=== PATIENT | male | born 1945 | race Caucasian/White ===

== ENCOUNTER 2020-04-03 11:05 | Outpatient (CLI) | payer MEDICARE, SELFPAY ==
--- NOTE | ~2020-04-03 | XR_ITS ---
XR hip RT min 3V w AP pelvis 04/03/2020 11:30 Indication: Right hip pain. Limited range of motion. Procedure: 4 views of the right hip including AP pelvis Comparison: No prior studies for comparison. Findings: Pelvic rings are intact. Moderate osteoarthritis of the hips. Sacral foramen are symmetric. There are bilateral femoral vascular calcifications. No acute fracture or traumatic malalignment. Impression: 1: No acute fracture. Reviewed, dictated and finalized at location A. Impression: 1: No acute fracture.
== END 2020-04-03 11:06 | disposition home or self-care (01) ==
PROVIDERS: PCP Family Medicine; Visit Provider Family Medicine
DX: M25.551 Pain in right hip (principal)
CPT/HCPCS: 73502

== ENCOUNTER 2020-04-03 11:58 | Outpatient (RCR) | payer MEDICARE, OTHER, SELFPAY ==
--- NOTE | 2020-04-10 14:30 | PTOPEVAL ---
Thank you for referring Forrest Kong to [facility]. Please review, sign, date and return this plan of care [facility]. I agree with and certify that the following plan of care is medically necessary. Referring Physician Date Admitting Provider: Attending Provider: Donell Gomez MD Referring Provider: *PT Outpatient Evaluation Start: 04/03/20 11:41 Freq: Status: Active Protocol: Document 04/03/20 11:40 JTF (Rec: 04/03/20 12:25 [facility] [id number]) Therapy Assessment Status Assessment Status Assessment Status Evaluation Evaluation Information Problem Diagnosis R hip pain Onset 03/31/20 Subjective Information patient reports he has been Query Text:As Reported By Patient/ having pain in the R hip since Family tuesday of this week. he reports he got into the shower and felt pain in the R hip. he reports the pain has gotten worse since then. he reports he has no ntb down the leg. he reports pain solely in the R hip with movement. he reports he sleeps in bed on his side ( both). he reports no injection to the hip. he reports he prescribed medications, but was instructed to take tylenol as needed. Diagnostic Tests X-Rays For This Problem Yes Prior Level of Function Comments Additional Prior Level of Function prior to tuesday, he reports no Comments issues with the R hip. he reports difficulty with chair transfers, lifting his leg to tie shoes/get dressed, and with standing and walking. Pain Assessment Timing of Pain Assessment Timing of Pain Assessment Assessment Pain Scale Pain Scale Used Numeric (1 - 10) Self Report Pain Assessment Right Hip(s) Reported Pain Level 5 Pain Description Aching,Dull Pain Frequency Acute,Continuous Lowest Pain Intensity 2 Greatest Pain Intensity 5 Pain Aggravating Factors Changing Position,Walking, Weight Bearing/Standing Pain Score Pain Score 5: Self Report Additional Pain Score Comments patient reports pain is located to the groin and buttock of the R hip. Lower Extremity Range of Motion Hip Range of Motion Right Hip Fle
--- NOTE | 2020-05-02 11:06 | PTOPEVAL ---
Thank you for referring Forrest Kong to [facility]. Please review, sign, date and return this plan of care [facility]. I agree with and certify that the following plan of care is medically necessary. Referring Physician Date Admitting Provider: Attending Provider: Donell Gomez MD Referring Provider: *PT Outpatient Evaluation Start: 04/03/20 11:41 Freq: Status: Active Protocol: Document 05/02/20 10:57 J (Rec: 05/02/20 11:05 [facility] [id number]) Therapy Assessment Status Assessment Status Assessment Status Re-evaluation Evaluation Information Problem Diagnosis R hip pain Subjective Information patient reports he feels good Query Text:As Reported By Patient/ this date. he reports he Family initially had a lot of pain in the R hip, but over the past few weeks his pain has really subsided and he reports feeling stronger and more mobile. he reports he would like to continue skilled PT to continue to work towards getting back to walking with a cane only and improving his strength further. Pain Assessment Timing of Pain Assessment Timing of Pain Assessment Assessment Pain Scale Pain Scale Used Numeric (1 - 10) Self Report Pain Assessment Right Hip(s) Reported Pain Level 1 Greatest Pain Intensity 2 Pain Score Pain Score 1: Self Report Lower Extremity Range of Motion Hip Range of Motion Right Hip Flexion Range of Motion - Active 100 Lower Extremity Muscle Strength Testing Hip Strength Right Hip Flexion Strength 4 Good Hip Extension Strength 4+ Good + Hip Abduction Strength 4+ Good + Left Hip Flexion Strength 4+ Good + Hip Extension Strength 4+ Good + Hip Abduction Strength 4+ Good + Knee Strength Right Knee Flexion Strength 5 Normal Knee Extension Strength 5 Normal Left Knee Flexion Strength 5 Normal Knee Extension Strength 5 Normal Muscle Length Testing Muscle Length Testing Left Hamstring Length 25 Query Text:(90 - 90 Position) Right Hamstring Length 15 Query Text:(90 - 90 Position) Palpation Assessment Palpation Palpation tenderness to palpation of the lateral thigh/hip of the R LE and medial thigh of the R LE. Gait Assessment Gait Pattern Assessment Other Gait Observations patient ambulates with hlding
== END 2020-05-21 13:33 | disposition home or self-care (01) ==
LOC: CHSPT 11:58
PROVIDERS: PCP Family Medicine; Visit Provider Family Medicine
DX: M25.551 Pain in right hip (principal)
CPT/HCPCS: 97014; 97110; 97140; 97161; 97530; G0283

== ENCOUNTER 2020-10-06 07:25 | Outpatient (CLI) | payer OTHER, SELFPAY ==
--- NOTE | ~2020-10-06 | CT_ITS ---
EXAMINATION: CTA abdomen pelvis DATE: 10/06/2020 08:27 INDICATION: Abdominal aortic aneurysm without rupture. TECHNIQUE: Computed tomographic angiography (CTA) of the abdomen and pelvis was performed without and with 180 mL Omnipaque-350 intravenous contrast. Automated exposure control and iterative reconstruct ion technique were employed. The dose-length product was 3827.10 mGy-cm. Maximum intensity projection 3D-reconstructions of the aorta and other arteries were constructed by the technologist on a [employer] workstation. COMPARISON: None. FINDINGS: The visualized portions of the lung bases demonstrate calcified pulmonary nodules, consiste nt with old granulomatous disease. No pleural effusion. The heart size is normal. There are coronary artery calcifications. No pericardial effusion. The liver, gallbladder, spleen, and pancreas are norm al. There are low-attenuation masses in the adrenal glands measuring up to 12 mm on the left, consist ent with adenomas. There is cortical thinning of the kidneys. There are cysts in the kidneys measurin g up to 10 mm on the left. There is a 4.7 cm fusiform aneurysm of infrarenal aorta with stent graft f rom the suprarenal aorta to the common iliac arteries. There is contrast in the aneurysm sac adjacent to the stent graft. No feeding artery is identified. There is mild stenosis of celiac axis, superior mesenteric artery, and the renal arteries. 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 The prostate is moderately enlarged. There is asymmetric fat in right inguinal canal that may be a small hernia. There is diverticulosis of the colon without evidence of diverticulitis. There ar e changes of appendectomy. There are no dilated loops of bowel. There are no pathologically enlarged lymph nodes. There is no free intraperitoneal fluid. There is moderate lumbar spondylosis. There is s evere right hip osteoarthritis and moderate left hip osteoarthritis. 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 IMPRESSION: 1. 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 Reviewed, dictated and finalized at location A. ESE TEACHER
[2020-10-06 07:49] LABS: Estimated Glomerular Filt Rate > 60
== END 2020-10-06 07:26 | disposition home or self-care (01) ==
LOC: CHSIMG 07:28
PROVIDERS: PCP Family Medicine
DX: I71.4 Abdominal aortic aneurysm, without rupture (principal)
CPT/HCPCS: 36415; 74174; 82565; Q9965

== ENCOUNTER 2020-11-26 12:07 | Outpatient (CLI) | payer MEDICARE, SELFPAY ==
[2020-11-26 12:21] LABS: Basophils Absolute Auto 0.03 K/mm3 (0.00-0.10); Basophils Percent Auto 0.5 % (0.0-1.0); Hemoglobin 13.8 g/dL (12.4-15.3); Immature Granulocyte Absolute 0.02 K/mm3 (0.00-0.00); Immature Granulocyte Percent A 0.3 % (0.0-0.0); Lymphocytes Absolute Auto 1.39 K/mm3 (1.10-4.50); Lymphocytes Percent Auto 23.3 % (18.0-42.0); Mean Corpuscular HGB Conc 32.9 g/dL (32.0-36.0); Mean Corpuscular Hemoglobin 30.6 pg (27.0-31.0); Mean Corpuscular Volume 93.1 fL (78.0-102.0); Mean Platelet Volume 10.6 fl (8.7-11.0); Monocytes Absolute Auto 0.52 K/mm3 (0.10-0.90); Monocytes Percent Auto 8.7 % (2.0-11.0); Neutrophils Percent Auto 67.2 % (50.0-70.0); Platelet Count Result 129 K/mm3 (150-420); Red Blood Count 4.51 M/mm3 (4.70-6.10); Red Cell Distribution Width 13.1 % (11.6-14.4)
[2020-11-26 13:58] LABS: Alanine Aminotransferase 17 U/L (16-63); Albumin Level 3.7 g/dL (3.4-5.0); Alkaline Phosphatase 65 U/L (46-116); Anion Gap 6 mmol/L (8-16); Aspartate Amino Transferase 23 U/L (15-37); Bilirubin,Total 0.6 mg/dL (0.00-1.00); Blood Urea Nitrogen 20 mg/dL (7-18); Calcium 8.9 mg/dL (8.5-10.1); Carbon Dioxide 32 mmol/L (21-32); Chloride 103 mmol/L (98-108); Cholesterol 231 mg/dL (0-200); Estimated Glomerular Filt Rate > 60; Glucose 104 mg/dL (70-99); HDL Direct 57 mg/dL (40-60); LDL Cholesterol Calculated 149 mg/dL (<130); Osmolality Calculated 294 mOsm/kg (285-295); Potassium 3.6 mmol/L (3.5-5.1); Sodium 141 mmol/L (136-145); Total Protein 6.6 g/dL (6.4-8.2); Triglycerides 125 mg/dL (0-150)
[2020-11-26 13:59] LABS: Thyroid Stimulating Hormone Reflex 1.38 u/IU/mL (0.36-3.74)
== END 2020-11-26 12:08 | disposition home or self-care (01) ==
LOC: CHSLAB 12:11
PROVIDERS: PCP Family Medicine; Visit Provider Family Medicine
DX: D64.9 Anemia, unspecified (principal); I10 Essential (primary) hypertension; E66.9 Obesity, unspecified
CPT/HCPCS: 36415; 80053; 80061; 84443; 85025

== ENCOUNTER 2021-04-04 10:47 | Emergency (ER) | payer MEDICARE, SELFPAY ==
[2021-04-04 11:10] VITALS: BP 157/68; PULSE 78; RESP 14; TEMP 37; O2SAT 95
[2021-04-04 12:06] LABS: Add Urine Microscopic? YES; Appearance Urine Cloudy (Clear); Bilirubin Urine Negative (Negative); Blood Urine 2+ (Negative); Color Urine Yellow (Yellow); Glucose Urine UA Negative (Negative); Ketones Urine Negative (Negative); Leukocyte Esterase Ur 2+ LEU/UL (Negative); Nitrate Urine Negative (Negative); Protein Urine 2+ (Negative); Specific Grav Ur 1.025 (1.010-1.020)
[2021-04-04 12:11] LABS: Bacteria Urine 2+ /hpf; WBC Urine 31-50 /hpf (0-3)
[2021-04-04 13:23] LABS: Basophils Absolute Auto 0.05 K/mm3 (0.00-0.10); Basophils Percent Auto 0.6 % (0.0-1.0); Eosinophils Absolute Auto 0.39 K/mm3 (0.02-0.50); Eosinophils Percent Auto 4.3 % (1.0-6.0); Hematocrit 40.4 % (37.0-46.0); Hemoglobin 13.2 g/dL (12.4-15.3); Immature Granulocyte Absolute 0.07 K/mm3 (0.00-0.00); Immature Granulocyte Percent A 0.8 % (0.0-0.0); Immature Platelet Fraction Pct 3.7 % (1.0-7.0); Lymphocytes Absolute Auto 1.11 K/mm3 (1.10-4.50); Lymphocytes Percent Auto 12.3 % (18.0-42.0); Mean Corpuscular HGB Conc 32.7 g/dL (32.0-36.0); Mean Corpuscular Hemoglobin 30.6 pg (27.0-31.0); Mean Corpuscular Volume 93.5 fL (78.0-102.0); Mean Platelet Volume 10.8 fl (8.7-11.0); Monocytes Absolute Auto 0.77 K/mm3 (0.10-0.90); Monocytes Percent Auto 8.5 % (2.0-11.0); Neutrophils Absolute Auto 6.7 K/mm3 (1.7-7.2); Neutrophils Percent Auto 73.5 % (50.0-70.0); Platelet Count Result 132 K/mm3 (150-420); Red Blood Count 4.32 M/mm3 (4.70-6.10); Red Cell Distribution Width 13.3 % (11.6-14.4); White Blood Count 9.1 K/mm3 (4.8-10.8)
[2021-04-04 13:31] LABS: Alanine Aminotransferase 30 U/L (16-63); Alkaline Phosphatase 69 U/L (46-116); Anion Gap 9 mmol/L (8-16); Aspartate Amino Transferase 19 U/L (15-37); Bilirubin,Total 0.5 mg/dL (0.00-1.00); Blood Urea Nitrogen 22 mg/dL (7-18); Calcium 9.2 mg/dL (8.5-10.1); Carbon Dioxide 32 mmol/L (21-32); Chloride 101 mmol/L (98-108); Estimated CRCL calculation 63 ml/min; Estimated Glomerular Filt Rate > 60; Glucose 107 mg/dL (70-99); Osmolality Calculated 297 mOsm/kg (285-295); Potassium 3.5 mmol/L (3.5-5.1); Sodium 142 mmol/L (136-145); Total Protein 7.3 g/dL (6.4-8.2)
--- NOTE | 2021-04-04 13:31 | ED.GENADULT ---
HPI - General Adult General Chief complaint: Urogenital-Male Stated complaint: frquency and urgency of urination Time Seen by Provider: 04/04/21 11:20 Source: patient Mode of arrival: ambulatory Limitations: no limitations History of Present Illness HPI narrative: Patient complains of moderately severe dysuria with sharp pain above his bladder, and pain with voiding ongoing since last pm. He had a fever of 100.6 last pm. This has been associated with urinary urgency and some frequency, and dysuria. Dysuria has been sharp pain, moderately severe, ongoing since onset, with no relief. He had been doing well up until two days ago. No modifying factors. He has had no known precipitating factors for a urinary tract infection. Onset (ago): hour(s) Location: abdomen (suprapubic) Radiation: non-radiation Severity: moderate Quality: stabbing Pain Consistency: intermittent Relieving factors: none Exacerbating factors: none Associated symptoms: other (dysuria, urinary frequency and urgency) Treatments prior to arrival: NSAID Related Data Home Medications Medication Instructions Recorded Confirmed chlorthalidone 25 mg tablet 25 mg PO DAILY 10/08/19 04/04/21 diltiazem HCl 240 mg 240 mg PO DAILY 10/08/19 04/04/21 capsule,extended release 24 hr doxazosin 4 mg tablet 4 mg PO DAILY 10/08/19 04/04/21 lisinopril 40 mg tablet 40 mg PO DAILY 10/08/19 04/04/21 multivitamin 1 tablet PO DAILY 12/15/20 04/04/21 Allergies Allergy/AdvReac Type Severity Reaction Status Date / Time No Known Allergies Allergy Verified 12/15/20 10:33 Review of Systems Constitutional: Constitutional: Reports chills, Reports fatigue and Reports weakness Eyes: Eyes: Reports no additional eye complaints ENT: Reports system reviewed and no additional complaints, except as documented Cardiovascular: Cardiovascular: Reports no additional cardiovascular complaints Respiratory: Respiratory: Reports no additional respiratory complaints Gastrointestinal: Gastrointestinal: Reports no additional gastrointestinal complaints Genitourinary: Genitourinary: Reports no additional male genitourinary complaints Musculoskeletal: Musculoskeletal: Reports no additional musculoskeletal complaints Integumentary/Breasts: Skin/Breast: Reports system reviewed and no additional complaints, except as docu Neurologic: Reports system reviewed and no additional complaints, except as documented Psychiatric: Psychiatric: Reports no additional psychiatric complaints Endocrine: Endocrine: Reports no additional endocrine complaints Hematologic/Lymphatic: Hematologic/Lymphatic: Reports no additional hematologic/lymphatic complaints Allergic/Immunologic: Allergic/Immunologic: Reports no additional allergic/immunologic complaints [facility] Past Medical History Medical History (Updated 04/04/21 @ 14:45 by Willem Boyle MD) AAA (abdominal aortic aneurysm) Anemia Arthritis BPH (benign prostatic hyperplasia) Gait disturbance Hip osteoarthritis History of GI bleed HTN (hypertension) Hx of benign neoplasm of bladder Obesity, Class II, BMI 35-39.9 Pain in unspecified hip Surgical History Surgical History History of appendectomy 11-25-2009 History of bilateral cataract extraction History of bowel resection History of removal of cyst approx. 2013 History of surgery history of tumor removed from bladder; took quarterly treatments (cysto and BCG) Dr. Rivera; all clear as of 07/01/15, last BCG treatment 6-- S/P AAA repair using straight graft 2011 Family History Family History Father Family history of malignant neoplasm Mother Family history of malignant neoplasm Family history of type 2 diabetes mellitus Social History Social History Smoking packs per day: 2 Smoking cigarettes per day: 40.0 Years smoked: 50
== END 2021-04-04 14:30 | disposition home or self-care (01) ==
PROVIDERS: Emergency Provider Emergency Medicine; PCP Family Medicine
DX: N41.0 Acute prostatitis (principal); Z87.891 Personal history of nicotine dependence; R82.90 Unspecified abnormal findings in urine
CPT/HCPCS: 36415; 80053; 81001; 83605; 85025; 85055; 87077; 87086; 87088; 87186; 99282; 99283

== ENCOUNTER 2021-05-19 10:24 | Outpatient (CLI) | payer MEDICARE, SELFPAY ==
--- NOTE | ~2021-05-19 | XR_ITS ---
EXAMINATION: XR lg joint inject/aspiration DATE: 05/19/2021 11:13 INDICATION: Right hip arthritis. TECHNIQUE: A time-out was performed to verify the patient's name, date of , and procedure to b e performed. The procedure including the risks, benefits, and alternatives was discussed with the pat ient. Risks discussed included bleeding and infection. The patient understood the risks and agreed to proceed. The skin overlying the right hip joint was prepped and draped in usual sterile fashion. A nesthetic was administered with 1% lidocaine subcutaneously. A 22 G needle was advanced under fluoro scopic guidance into the joint. Injection of 1 mL of Omnipaque 240 confirmed intra-articular positio n of the needle. Subsequently, injectate consisting of 2 mL 0.5% bupivacaine and 1 mL 80 mg/mL Depo- Medrol was instilled. The needle was removed and the entry site was cleaned and dressed. There were no immediate complications. Fluoroscopy exposure time was 0.0 minutes. The total number of images wa s 2. FINDINGS: Real-time fluoroscopy demonstrates the needle in the right hip joint. Patient's pain prior to procedure:11/16. Patient's pain following the procedure: 11/16. IMPRESSION: 1. Fluoroscopy-guided right hip joint injection of local anesthetic and steroid. Reviewed, dictated and finalized at location A. IMPRESSION: 1. Fluoroscopy-guided right hip joint injection of local anesthetic and steroid .
== END 2021-05-19 10:25 | disposition home or self-care (01) ==
PROVIDERS: PCP Family Medicine; Visit Provider Orthopaedic Surgery
DX: M16.11 Unilateral primary osteoarthritis, right hip (principal)
CPT/HCPCS: 20610; J1040; Q9966

== ENCOUNTER 2021-12-30 07:41 | Outpatient (CLI) | payer MEDICARE, SELFPAY ==
--- NOTE | ~2021-12-30 | CT_ITS ---
EXAMINATION: CT chest abdomen pelvis w con DATE: 12/30/2021 09:04 INDICATION: Abdominal aortic aneurysm TECHNIQUE: Transaxial computed tomographic images of the chest, abdomen, and pelvis were obtained aft er the administration of 100 cc of Omnipaque 350 intravenous contrast. The dose-length product (DLP) was 1617.91 mGy-cm. Automated exposure control and iterative reconstruction technique were employed. COMPARISON: 10/06/2020 FINDINGS: CHEST CT: Calcified pulmonary nodules and calcified bilateral hilar and mediastinal lymph nodes are consistent with old granulomatous disease. There are tree-in-bud and nodular opacities of the lungs, likely infe ctious or inflammatory. There is no pleural effusion or pneumothorax. The heart size is normal. There is calcified coronary artery atherosclerosis. There is a mildly enlarged 1.2 cm lower paraesophageal lymph node. There are enlarged para-aortic lymph nodes just above the diaphragmatic hiatus which ap sure up to 1.5 cm. ABDOMEN/PELVIS CT: There is a new ill-defined 6.7 x 5.7 cm mass of the right hepatic lobe. The spleen, pancreas, gallbla dder, and adrenal glands are normal. There are small cysts of the kidneys. An area of cortical scarri ng is noted medially in the right kidney lower pole. There are changes of endoluminal aortic aneurysm repair. There is a persistent 4.2 cm fusiform aneurysm of the infrarenal abdominal aorta, decreased in size from 4.7 cm. There is aortocaval lymphadenopathy just below the level of the right renal vess els. There is severe lumbar spondylosis. Again noted is osteonecrosis of the right femoral head. IMPRESSION: 1. Stented fusiform infrarenal abdominal aortic aneurysm with interval decrease in size. 2. New liver mass and thoracic and abdominal lymphadenopathy, consistent with metastatic disease of u nknown primary. The liver mass with likely be amenable to percutaneous biopsy, which is recommended. These findings and recommendations were discussed with Dr. Jeffrey Lugo DO at 1501 hours on 12/09. Reviewed, dictated and finalized at location A. LAR ALARM MECHANIC IMPRESSION: 1. Stented fusiform infrarenal abdominal aortic aneurysm with interval decrease in size. 2. New liver mass and thoracic and abdominal lymphadenopathy, consistent with m etastatic disease of unknown primary. The liver mass with likely be amenable to percutaneous biopsy, which is recommended. These findings and recommendations were discussed with Saniya Goff at 1501 hours on 12/30/2021.
[2021-12-30 07:52] LABS: Hematocrit 35.1 % (37.0-46.0); Hemoglobin 11.4 g/dL (12.4-15.3); Mean Corpuscular HGB Conc 32.5 g/dL (32.0-36.0); Mean Corpuscular Hemoglobin 30.7 pg (27.0-31.0); Mean Corpuscular Volume 94.6 fL (78.0-102.0); Mean Platelet Volume 9.7 fl (8.7-11.0); Platelet Count Result 157 K/mm3 (150-420); Red Blood Count 3.71 M/mm3 (4.70-6.10); Red Cell Distribution Width 13.9 % (11.6-14.4); White Blood Count 6.9 K/mm3 (4.8-10.8)
[2021-12-30 08:02] LABS: Hemoglobin A1C 5.9 % (<5.7)
[2021-12-30 08:21] LABS: Alanine Aminotransferase 21 U/L (16-63); Alkaline Phosphatase 85 U/L (46-116); Anion Gap 10 mmol/L (8-16); Aspartate Amino Transferase 17 U/L (15-37); Bilirubin,Total 0.4 mg/dL (0.00-1.00); Blood Urea Nitrogen 19 mg/dL (7-18); Calcium 8.9 mg/dL (8.5-10.1); Carbon Dioxide 32 mmol/L (21-32); Chloride 104 mmol/L (98-108); Estimated Glomerular Filt Rate > 60; Glucose 111 mg/dL (70-99); Osmolality Calculated 305 mOsm/kg (285-295); Potassium 3.7 mmol/L (3.5-5.1); Sodium 146 mmol/L (136-145); Total Protein 6.3 g/dL (6.4-8.2)
== END 2021-12-30 07:42 | disposition home or self-care (01) ==
LOC: CHSIMG 07:43
PROVIDERS: PCP Family Medicine; Visit Provider Family Medicine
DX: I71.4 Abdominal aortic aneurysm, without rupture (principal); R73.09 Other abnormal glucose
CPT/HCPCS: 36415; 71260; 74177; 80053; 83036; 85027; Q9967

== ENCOUNTER 2022-01-13 08:07 | Outpatient (CLI) | payer MEDICARE, SELFPAY ==
[2022-01-01 13:45] VITALS: BMI 38.5
--- NOTE | 2022-01-01 13:50 | PC.NURSE ---
Report to the Outpatient Waiting Room, entrance under the green pavilion located off [facility], at time _0830_ on date _01/13/22_. OR Time: _1030_. - You and your visitor will be asked a series of questions to screen for COVID 19 for your protection. - A mask is required within the hospital. One visitor will be allowed to accompany the patient into the hospital. Patients visitor will be instructed to remain with patient at all times or leave the building. We will allow the visitor to come back to the postoperative area when patient is ready. Preoperative COVID Testing Requirements: NONE - No food/drink from 0430 until time of procedure Take the following medications with a SIP of water the morning of surgery: __MORNING MEDICATIONS__ Medications to discontinue per physician _NONE_ Please no deodorant, or body powder the day of surgery. No jewelry (including any body piercings) or valuables the day of surgery, leave them at home. Please take a shower or bath the night before, or the morning of, surgery with an antibacterial soap. Wear comfortable, loose fitting clothing. Children are encouraged to wear pajamas. - Jewelry must be removed prior to entering the operating room. Rings and piercings that are not removed may be cut off. - The hospital will not accept responsibility for valuables. - Please leave all valuables, including medications, at home the day of surgery. If you are going home after surgery, a licensed stacker driver must drive you home. - NO public transportation without another adult. - We recommend that an adult stay with you for 24 hours following discharge. - We also recommend that you do not drive, make important decision, drink alcoholic beverages, or take any drugs that were not prescribed by your health care provider for at least 24 hours after your discharge time. Follow any additional instructions given to you from your surgeon. Telephone instructions given to ____PT and asked if any additional questions and then verbalized understanding. Patient advised to call surgeon office or pre surgery nurse liaison [phone] if any additional questions.
[2022-01-13] VITALS (12 sets, daily range): BP systolic 141–174; BP diastolic 67–81; PULSE 60–74; RESP 14–16; TEMP 36.8; O2SAT 95–98
--- NOTE | ~2022-01-13 | US_ITS ---
EXAMINATION: US biopsy liver DATE: 01/13/2022 10:41 INDICATION: Liver mass. TECHNIQUE: The procedure including the risks, benefits, and alternatives was discussed with the patie nt. Risks discussed included bleeding and infection. The patient understood the risks and agreed to p roceed. The skin overlying the liver was prepped and draped in usual sterile fashion. Anesthetic was administered with 1% lidocaine subcutaneously. An 18 gauge core biopsy needle was then used to obta in 3 core biopsy specimens under continuous sonographic guidance. The entry site was cleaned and dres sed. There were no immediate complications. FINDINGS: Ultrasound images demonstrate the needle in a 7.8 cm hypoechoic mass in right hepatic lobe. IMPRESSION: 1. Ultrasound-guided core needle biopsy of a liver mass. Reviewed, dictated and finalized at location A. LIFE REMOVAL SPECIALIST
[2022-01-13 08:59] LABS: Mean Platelet Volume 10.3 fl (7.4-10.4); Platelet Count Result 156 k/mm3 (150-375)
[2022-01-13 09:10] LABS: Prothrombin Time 13.1 Seconds (11.1-14.7)
--- NOTE | 2022-01-13 13:38 | SUR.PHASEII ---
this nurse informed md Payton that this pt is doing well. VSS. denies any pain and surgical site is soft and no gross signs of any bleeding.
--- NOTE | 2022-01-13 13:41 | SUR.PHASEII ---
dr weber said he does not need to see the pt before he can leave.
== END 2022-01-13 14:35 | disposition home or self-care (01) ==
PROVIDERS: PCP Family Medicine; Visit Provider Radiology Diagnostic Radiology
PROC: BF45ZZZ Ultrasonography of Liver (ICD-10-PCS; CPT 47000; principal; 2022-01-13 10:30)
DX: C22.7 Other specified carcinomas of liver (principal); R16.0 Hepatomegaly, not elsewhere classified
CPT/HCPCS: 36415; 47000; 76942; 85049; 85610; 88307; 88313; 88342

== ENCOUNTER 2022-01-29 14:03 | Outpatient (CLI) | payer MEDICARE, SELFPAY ==
[2022-02-01 14:05] LABS: CA 19-9 12 U/mL (<34)
== END 2022-01-29 14:04 | disposition home or self-care (01) ==
LOC: ANHLAB 14:04
PROVIDERS: PCP Family Medicine; Visit Provider Internal Medicine Hematology & Oncology
DX: C22.1 Intrahepatic bile duct carcinoma (principal); C18.9 Malignant neoplasm of colon, unspecified
CPT/HCPCS: 36415; 82378; 86301

== ENCOUNTER 2022-02-12 10:37 | Outpatient (CLI) | payer MEDICARE, SELFPAY ==
[2022-02-12 11:20] LABS: Estimated Glomerular Filt Rate 57
== END 2022-02-12 10:38 | disposition home or self-care (01) ==
LOC: CHSLAB 10:41
PROVIDERS: PCP Family Medicine
DX: C22.1 Intrahepatic bile duct carcinoma (principal)
CPT/HCPCS: 99199

== ENCOUNTER 2022-02-16 07:24 | Outpatient (CLI) | payer MEDICARE, SELFPAY ==
--- NOTE | ~2022-02-16 | MR_ITS ---
EXAMINATION: MR abdomen wo/w con INDICATION: Cholangiocarcinoma TECHNIQUE: Coronal SSFSE ARC, WATER:coronal LAVA-FLEX, Coronal 2D FIESTA FatSat, Axial SSFSE BH ARC, Axial 3D DualEcho BH, Axial SSFSE-IR, Axial DWI b=500, Axial 2D FIESTA FatSat, pre and dynamic postco ntrast Axial LAVA ARC, postcontrast Coronal In and Opposed phase LAVA FLEX COMPARISON: CT, 12/30/2021 CONTRAST: Multihance, 20 cc FINDINGS: There is a 10.1 x 7.3 x 11.5 cm mass of the right hepatic lobe which demonstrates heterogen eous T1 and T2 signal intensity. The mass also demonstrates heterogeneous internal enhancement after contrast administration as well as restricted diffusion. No additional liver masses are identified. T he spleen, gallbladder, and adrenal glands are normal. Again seen is retroperitoneal lymphadenopathy near the right renal vessels. There is a 7 mm cystic lesion in the tail of the pancreas without defin ite communication with the main pancreatic duct. Cysts of the kidneys measure up to 1.3 cm on the lef t. There is a 4.2 cm infrarenal abdominal aortic aneurysm status post endoluminal aortic aneurysm rep air. IMPRESSION: 1. 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 2. Retroperitoneal lymphadenopathy concerning for metastatic disease. 3. 7 mm cystic lesion in the tail of the pancreas, probably benign. Reviewed, dictated and finalized at location A.
== END 2022-02-16 07:25 | disposition home or self-care (01) ==
PROVIDERS: PCP Family Medicine
DX: C22.1 Intrahepatic bile duct carcinoma (principal); K76.9 Liver disease, unspecified
CPT/HCPCS: 74183; A9577

== ENCOUNTER 2022-03-04 09:57 | Outpatient (CLI) | payer MEDICARE, SELFPAY ==
[2022-03-04 10:08] LABS: Basophils Absolute Auto 0.07 K/mm3 (0.00-0.10); Basophils Percent Auto 0.9 % (0.0-1.0); Hematocrit 30.9 % (37.0-46.0); Hemoglobin 9.4 g/dL (12.4-15.3); Immature Granulocyte Absolute 0.06 K/mm3 (0.00-0.00); Immature Granulocyte Percent A 0.7 % (0.0-0.0); Lymphocytes Absolute Auto 0.89 K/mm3 (1.10-4.50); Lymphocytes Percent Auto 10.9 % (18.0-42.0); Mean Corpuscular HGB Conc 30.4 g/dL (32.0-36.0); Mean Corpuscular Hemoglobin 28.5 pg (27.0-31.0); Mean Corpuscular Volume 93.6 fL (78.0-102.0); Mean Platelet Volume 8.9 fl (8.7-11.0); Monocytes Absolute Auto 0.72 K/mm3 (0.10-0.90); Monocytes Percent Auto 8.8 % (2.0-11.0); Neutrophils Absolute Auto 6.5 K/mm3 (1.7-7.2); Neutrophils Percent Auto 78.7 % (50.0-70.0); Platelet Count Result 172 K/mm3 (150-420); Red Cell Distribution Width 14.1 % (11.6-14.4); White Blood Count 8.2 K/mm3 (4.8-10.8)
[2022-03-04 10:23] LABS: Partial Thromboplastin Time 26.8 SEC (23.90-30.70)
[2022-03-04 10:29] LABS: Anion Gap 8 mmol/L (8-16); Blood Urea Nitrogen 21 mg/dL (7-18); Calcium 8.5 mg/dL (8.5-10.1); Carbon Dioxide 31 mmol/L (21-32); Chloride 103 mmol/L (98-108); Estimated Glomerular Filt Rate > 60; Glucose 113 mg/dL (70-99); Osmolality Calculated 298 mOsm/kg (285-295); Potassium 3.5 mmol/L (3.5-5.1); Sodium 142 mmol/L (136-145)
== END 2022-03-04 09:58 | disposition home or self-care (01) ==
LOC: CHSLAB 10:00
PROVIDERS: Surgery; PCP Family Medicine; Visit Provider Anesthesiology
DX: Z79.899 Other long term (current) drug therapy (principal); C22.1 Intrahepatic bile duct carcinoma
CPT/HCPCS: 36415; 80048; 85025; 85730

== ENCOUNTER 2022-03-09 00:22 | Day surgery (SDC) | payer MEDICARE, SELFPAY ==
--- NOTE | 2022-03-03 15:29 | PC.NURSE ---
Report to the Outpatient Waiting Room, entrance under the green pavilion located off [facility], at time _1230_ on date _03/09/22_. OR Time: _1430_. - You and your visitor will be asked a series of questions to screen for COVID 19 for your protection. - Only one visitor is allowed at this time. - The patient visitor is requested to leave or wait in car when not with patient. - A mask is required within the hospital. Patients may have clear liquids (water, carbonated beverages, clear teas, apple juice) until 3 hours prior to surgery (1130 AM) with a maximum of 20 ounces. - No food from midnight until time of surgery - Infants may have breast milk until 4 hours before surgery, formula 6 hours prior to surgery. - Children will be allowed to drink immediately following surgery. If applicable, please bring a bottle or sippy cup to assist with drinking. Juice, water, soda, and popsicles are readily available. For infants on formula, please bring formula the day of surgery. Pacifiers are allowed. Take the following medications with a SIP of water the morning of surgery: _DILTIAZEM__ Medications to discontinue per ___ANESTHESIA - MULTIVITAMIN 3 DAYS PRIOR TO SURGERY, Date to take last dose 03/05/22_ Please no make-up, nail mozambican, hairspray, perfume, deodorant, or body powder the day of surgery. No jewelry (including any body piercings) or valuables the day of surgery, leave them at home. Please take a shower or bath the night before, or the morning of, surgery with an antibacterial soap. Wear comfortable, loose fitting clothing. Children are encouraged to wear pajamas. - Jewelry must be removed prior to entering the operating room. Rings and piercings that are not removed may be cut off. - The hospital will not accept responsibility for valuables. - Please leave all valuables, including medications, at home the day of surgery. If you are going home after surgery, a licensed electric screw driver operator must drive you home. - NO public transportation without another adult. - We recommend that an adult stay with you for 24 hours following discharge. - We also recommend that you do not drive, make important decision, drink alcoholic beverages, or take any drugs that were not prescribed by your health care provider for at least 24 hours after your discharge time. For Pediatric surgeries, we recommend two adults accompany the child home (only one inside the building at this time). Follow any additional instructions given to you from your surgeon. If you or anyone in your household have experienced Covid symptoms in the past week, please notify your surgeon or the nurse liaison at the phone number below for possible testing. Telephone instructions given to __PT and asked if any additional questions and then verbalized understanding. Patient advised to call surgeon office or pre surgery nurse liaison [phone] if any additional questions.
[2022-03-03 15:31] VITALS: BMI 38.4
--- NOTE | 2022-03-08 20:37 | PM.HPGS ---
History of Present Illness History of Present Illness Consent: Risks, benefits, and alternatives of placement of a Ann Marie-cath have been discussed and questions answered. Patient agrees to proceed with procedure. Chief complaint: cholangiocarcinoma Narrative: Forrest Kong is a 76 year old male White male with recently diagnosed Cholangiocarcinoma. This was 1st detected on a CT that he had done to evaluate a possible AAA graft that had been done in the past. An US guided liver biopsy provided the tissue diagnosis. Review of Systems Constitutional: Constitutional: Reports no additional constitutional complaints and Denies malaise Eyes: Eyes: Denies change in vision and Denies loss of vision ENT: Reports Normal hearing present, Denies change in voice, Denies dizziness, Denies hoarseness and Denies sore throat Cardiovascular: Cardiovascular: Denies chest pain, Denies leg edema and Denies dyspnea Comments: HX of previous endovascular AAA repair. Hx of HTN Respiratory: Respiratory: Denies cough, Denies dyspnea and Denies wheezing Gastrointestinal: Gastrointestinal: Denies hematochezia, Denies change in bowel habits and Denies heartburn Genitourinary: Genitourinary: Denies urinary frequency and Denies urinary incontinence Comments: Hx of bladder CA S/P TURBT and then Rx with BCG. Also a Hx of BPH. Neurologic: Reports Normal hearing present, Denies confusion, Denies dizziness, Denies loss of vision, Denies memory loss and Denies seizure-like activity Psychiatric: Psychiatric: Denies confusion, Denies depression and Denies memory loss Endocrine: Endocrine: Denies cold intolerance and Reports fatigue Hematologic/Lymphatic: Hematologic/Lymphatic: Denies easy bleeding and Denies easy bruising Allergic/Immunologic: Allergic/Immunologic: Denies wheezing PMFSH Past Medical History Medical History AAA (abdominal aortic aneurysm) Anemia Arthritis BPH (benign prostatic hyperplasia) Cholangiocarcinoma (~02/2022) Gait disturbance Hip osteoarthritis History of GI bleed HTN (hypertension) Hx of benign neoplasm of bladder Obesity, Class II, BMI 35-39.9 Pain in unspecified hip Surgical History Surgical History History of appendectomy 11-25-2009 History of bilateral cataract extraction History of bowel resection History of removal of cyst approx. 2013 History of surgery history of tumor removed from bladder; took quarterly treatments (cysto and BCG) Dr. Rivera; all clear as of 07/01/15, last BCG treatment 6-02-17 S/P AAA repair using straight graft 2011 Family History Family History Father Family history of malignant neoplasm Mother Family history of malignant neoplasm Family history of type 2 diabetes mellitus Social History Social History Smoking packs per day: 2 Smoking cigarettes per day: 40.0 Years smoked: 50 Smoking pack-years: 100.00 Smoking status: Former smoker Tobacco type: cigarettes Second hand tobacco smoke exposure: No Smoking end date: 11/07/09 Alcohol intake: current Alcohol use details: 2-4 DRINKS/MONTH Substance use: never Substance use type: does not use Gender identity (if verbalized by the patient): Male Spiritual care concerns: No Meds Home Medications and Allergies Home Medications Medication Instructions Recorded Confirmed Type chlorthalidone 25 mg tablet 12.5 mg PO QAM 10/08/19 03/10/22 History diltiazem HCl 240 mg 240 mg PO QAM 10/08/19 03/10/22 History capsule,extended release 24 hr lisinopril 40 mg tablet 40 mg PO QAM 10/08/19 03/10/22 History multivitamin 1 tablet PO QAM 12/15/20 03/10/22 History doxazosin 8 mg tablet 4 mg PO HS 12/29/21 03/10/22 History hydrocodone 5 mg-acetaminophen 325 1 tablet PO Q6H PRN
--- NOTE | ~2022-03-09 | XR_ITS ---
EXAMINATION: XR chest port-a-cath/central INDICATION: Port-A-Cath insertion TECHNIQUE: Portable AP chest at 1623 hours COMPARISON: None available FINDINGS: A right internal jugular Port-A-Cath ends with its tip in the midsuperior vena cava. No pne umothorax is identified. The lung bases are excluded from the examination. The heart size is normal. There is advanced osteoarthritis of the left glenohumeral joint. IMPRESSION: 1. Right internal jugular Port-A-Cath ending in the midsuperior vena cava. No pneumothorax identified . Reviewed, dictated and finalized at location A. IMPRESSION: 1. Right internal jugular Port-A-Cath ending in the midsuperior vena cava. No p neumothorax identified.
--- NOTE | ~2022-03-09 | XR_ITS ---
EXAMINATION: XR fl guide central line place INDICATION: Port-A-Cath insertion TECHNIQUE: Fluoroscopy exposure time was 21.4 seconds. Four intraoperative fluoroscopic images are bansal bmitted for review. COMPARISON: None available FINDINGS: Fluoroscopic images demonstrate insertion of a right internal jugular Port-A-Cath ending wi th its tip in the midsuperior vena cava. Please refer to procedure note for full details. IMPRESSION: 1. Right internal jugular Port-A-Cath insertion. Reviewed, dictated and finalized at location A.
[2022-03-09 12:57] VITALS: BP 136/67; PULSE 74; RESP 18; TEMP 37.1; O2SAT 96
[2022-03-09] MEDS: LACTATED RINGERS 1,000 ML 30 ML IV CONT (13:26)
[2022-03-09] MEDS: KETOROLAC 15 MG/ML VIAL (*BKC) IV PUSH (13:27)
--- NOTE | 2022-03-09 13:59 | WPDANESEPPF ---
Anes - Initial Pre Proc Eval Procedure: Operation Date: 03/09/22 14:30 Proposed Procedures p Insertion Ann Marie Cath - Jesus Stone MD Date/Time: 03/09/22 13:59 Surgeon: Jesus Stone MD Pre Op Diagnosis: cholangiocarcinoma Patient Data Age: 76 Gender: M Height: 1.75 m Weight: 117.1 kg Last Vital Signs Temp 37.1 C 03/09/22 12:57 Pulse 74 03/09/22 12:57 Resp 18 03/09/22 12:57 BP 136/67 03/09/22 12:57 Pulse Ox 96 03/09/22 12:57 Allergies Allergy/AdvReac Type Severity Reaction Status Date / Time No Known Allergies Allergy Verified 03/09/22 12:55 Home Medications Medication Instructions Recorded Confirmed Type chlorthalidone 25 mg tablet 12.5 mg PO QAM 10/08/19 03/09/22 History diltiazem HCl 240 mg 240 mg PO QAM 10/08/19 03/09/22 History capsule,extended release 24 hr lisinopril 40 mg tablet 40 mg PO QAM 10/08/19 03/09/22 History multivitamin 1 tablet PO QAM 12/15/20 03/09/22 History doxazosin 8 mg tablet 4 mg PO HS tablet 12/29/21 03/09/22 History Patient hx anesthesia problems: none Family hx anesthesia problems: none Results Review: All pre-operative results and documents have been reviewed as part of the pre-operative evaluation. [facility] Past Medical History Medical History AAA (abdominal aortic aneurysm) Anemia Arthritis BPH (benign prostatic hyperplasia) Cholangiocarcinoma (~02/2022) Gait disturbance Hip osteoarthritis History of GI bleed HTN (hypertension) Hx of benign neoplasm of bladder Obesity, Class II, BMI 35-39.9 Pain in unspecified hip Surgical History Surgical History History of appendectomy 11-25-2009 History of bilateral cataract extraction History of bowel resection History of removal of cyst approx. 2013 History of surgery history of tumor removed from bladder; took quarterly treatments (cysto and BCG) Dr. Rivera; all clear as of 07/01/15, last BCG treatment 04-10-13 S/P AAA repair using straight graft 2011 Family History Family History Father Family history of malignant neoplasm Mother Family history of malignant neoplasm Family history of type 2 diabetes mellitus Social History Social History Smoking packs per day: 2 Smoking cigarettes per day: 40.0 Years smoked: 50 Smoking pack-years: 100.00 Smoking status: Former smoker Tobacco type: cigarettes Second hand tobacco smoke exposure: No Smoking end date: 11/07/09 Alcohol intake: current Alcohol use details: 2-4 DRINKS/MONTH Substance use: never Substance use type: does not use Living arrangements: alone Gender identity (if verbalized by the patient): Male Spiritual care concerns: No Anes - Eval Final PreProcedure Day of Procedure 03/09/22 13:59 Patient weight: obese Heart: regular rate and rhythm Lungs: decreased breath sounds Airway: Mallampati scale class II Neurological: alert and oriented Last oral intake: >/= 8 hours ASA classification: IV Emergent: no Anesthetic plan: proceed Anesthesia type and monitoring: general GIVS and standard monitoring Results Review: All pre-operative results and documents have been reviewed as part of the pre-operative evaluation. Informed Consent: The patient's anesthetic plan and its attendant risks and benefits were discussed with the patient/family/POA. Questions were solicited and answers provided to the satisfaction of the patient/family/POA.
--- NOTE | 2022-03-09 14:54 | WPDHPUPDATE1 ---
History and Physical Update Update Date/Time: 03/09/22 14:54 History and Physical has been reviewed, including an updated exam of the patient. There are NO changes in the patient's condition. Risks, benefits, and alternatives have been discussed and questions answered. Patient agrees to proceed with procedure.
[2022-03-09] MEDS: ceFAZolin 2 GM/D5W 50 ML 2 GM/50 ML BAG IVPB (15:03)
[2022-03-09] MEDS: HEPARIN SODIUM 5,000 UNITS/ML VIAL 5000 UNITS IRRIGATION (15:48)
[2022-03-09 16:15] VITALS: BP 128/54; PULSE 66; RESP 16; O2SAT 99
--- NOTE | 2022-03-09 16:19 | W.PM.PROC2 ---
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 Placement of Ann Marie-cath. 2. Use of US for vascular access site selection and visualization of needle access to vein. Surgeon Jesus Stone MD Cardiac Nurse Practitioner PAULA [place].[employer] certified surgical tech/first assistant Anesthesia Local (with 0.5% Marcaine with epinepherine) and Other (GIVS) Indications Patient was recently discovered to have liver metastasis secondary to suspected cholangiocarcinoma. Please see the history and physical for further details. Patient is planning to proceed to adjuvant chemotherapy and possible later liver resection. Therefore, Dr. Thorne requested placement of central venous access for chemotherapy. Findings Normal vascular anatomy of the right neck including patent jugular vein and posterior medial lying carotid artery. Description of Procedure Patient was seen and marked in the pre-op area prior to coming to the OR. Patient was brought to the operating room. Patient was placed supine on the operating table and general IV sedation was induced. The nurse facility maintenance supervisor provided And continuous monitoring, oxygen, and IV sedation or general anesthesia with IV sedation as was appropriate for the patient's condition. See anesthesia notes). Patient's head was carefully turned to the left side while in the supine position and the patient's entire neck and anterior chest on both sides was prepped and draped in the usual sterile fashion. Following this the appropriate time-out was completed confirming procedure and patient. We confirmed that all the needed equipment was present in the room including the vascular ultrasound probe in machine. Following this the ultrasound probe was draped into the field and using the probe we carefully identified the carotid artery and jugular vein on the right neck. I then saved an image of the vascular anatomy of the neck, which documented the selected vessels patency and transferred it from the ultrasound machine to the [place] chart. I marked the skin directly over the right internal jugular vein. I then used an 11 blade knife to make a small hiral in the skin. Following this, using the continuous ultrasound guidance, a Cook needle was placed through the skin incision and on into this vein. I then was able to draw back good dark blood. Once this was completed a guidewire using a J-tip was advanced through the needle and then the needle and the guidewire cover were withdrawn. C-arm fluoroscopy was used to confirm that the guidewire was nicely in the central venous system. Once this was confirmed with the C - arm, I preceded on by making the pocket for the port on the patient's anterior right chest approximately 3 centimeters below the clavicle overlying the chest wall. Local anesthetic was infiltrated into the skin where there was a transverse incision marked out. Incision was made and we made a pocket inferior to the incision with just a little dissection superior. The Smart port was tried in the pocket and seemed to fit well. Following this the catheter which had been placed on a tunneling device was tunneled from the port site on the anterior right chest up to the right neck where the small incision had been made slightly larger with an #11 blade knife. Then the catheter was pulled through so that we would have 15 centimeters to put into the central venous system once the dilation took place. Following this we placed the dilator and sheath over the guidewire in the jugular vein and carefully dilated the tract into the central venous system. The guidewire and dilator were then removed, carefully covering the end of the sheath to prevent air embolus. The end of the catheter which had been removed from the tunneling device and the tip checked was then inserted into the sheath and into the neck. I then carefully pulled the 2 arms of the tear-away sheath away as the assistan
[2022-03-09 16:45] VITALS: BP 114/56; PULSE 79
[2022-03-09 17:05] VITALS: BP 123/64; PULSE 74
== END 2022-03-09 17:12 | disposition home or self-care (01) ==
PROVIDERS: PCP Family Medicine; Visit Provider Surgery
PROC: (CPT 36561; principal; 2022-03-09 14:30)
DX: C80.1 Malignant (primary) neoplasm, unspecified (principal); C78.7 Secondary malignant neoplasm of liver and intrahepatic bile duct; D64.9 Anemia, unspecified; N40.0 Benign prostatic hyperplasia without lower urinary tract symptoms; R26.9 Unspecified abnormalities of gait and mobility; I10 Essential (primary) hypertension; M16.10 Unilateral primary osteoarthritis, unspecified hip; Z87.891 Personal history of nicotine dependence; E66.9 Obesity, unspecified; Z68.38 Body mass index [BMI] 38.0-38.9, adult
CPT/HCPCS: 36561; 76937; 77001; C1788; J0690; J1644; J1885; J2704; J3010; J7030; J7120

== ENCOUNTER 2022-03-17 10:00 | Outpatient (RCR) | payer MEDICARE, SELFPAY ==
[2022-03-17] VITALS (9 sets, daily range): BP systolic 139–167; BP diastolic 51–75; PULSE 67–80; RESP 20–22; TEMP 36.2–36.8; O2SAT 94–97
[2022-03-17] MEDS: SODIUM CHLORIDE 0.9% IV 250 ML 30 ML (10:25)
[2022-03-17] MEDS: diphenhydrAMINE HCl CAP 25 MG CAPSULE PO (10:34)
[2022-03-17] MEDS: ACETAMINOPHEN 325 MG TABLET 650 MG PO (10:34)
--- NOTE | 2022-03-17 12:28 | PC.NURSE ---
On admission patient reports shortness of breath ongoing for about 1 month. Patient denies any pain. Patient reports he has had 3 blood transfusions in the past, approximately 7 years ago. He tolerated the transfusions well with no reactions. He denies history of CHF or volume overload.
--- NOTE | 2022-03-17 12:32 | PC.NURSE ---
Rate of blood transfusion increased to 250 ml/hr
[2022-03-17] MEDS: FUROSEMIDE INJ 40 MG/4 ML VIAL 20 MG IV PUSH (13:07)
[2022-03-17] MEDS: HEPARIN SODIUM LOCK FLUSH 500 UNITS/5 ML VIAL (15:45)
== END 2022-03-18 08:00 | disposition home or self-care (01) ==
LOC: ANHCPCTRAN 10:00
PROVIDERS: PCP Family Medicine; Visit Provider Internal Medicine Hematology & Oncology
DX: D64.9 Anemia, unspecified (principal)
CPT/HCPCS: 36415; 36430; 86850; 86900; 86901; 86920; 96374; A9270; J1642; J1940; J7050; P9016

== ENCOUNTER 2022-04-01 09:29 | Outpatient (CLI) | payer MEDICARE, SELFPAY ==
--- NOTE | ~2022-04-01 | XR_ITS ---
EXAMINATION: XR chest 2V DATE: 04/01/2022 09:49 INDICATION: Pulmonary edema TECHNIQUE: frontal and lateral views of the chest were obtained. COMPARISON: Chest radiograph dated 04/05/2022 FINDINGS: Right internal jugular central venous port catheter with distal tip at the midsuperior vena cava. Sma ll bilateral pleural effusions with associated bibasilar atelectasis. Small left paracardial fat pad. No other airspace opacities, pulmonary edema or pneumothorax. The cardiomediastinal silhouette is no rmal. Advanced bilateral glenohumeral osteoarthritis. Chronic mild anterior wedging of a few mid thor acic vertebral bodies. IMPRESSION: 1. Small bilateral pleural effusions with mild bibasilar atelectasis. Reviewed, dictated and finalized at location B.
== END 2022-04-01 09:30 | disposition home or self-care (01) ==
PROVIDERS: PCP Family Medicine; Visit Provider Internal Medicine Hematology & Oncology
DX: R60.9 Edema, unspecified (principal); J90 Pleural effusion, not elsewhere classified; M19.012 Primary osteoarthritis, left shoulder; M19.011 Primary osteoarthritis, right shoulder; M48.54XA Collapsed vertebra, not elsewhere classified, thoracic region, initial encounter for fracture
CPT/HCPCS: 71046

== ENCOUNTER 2022-04-06 14:19 | Outpatient (CLI) | payer MEDICARE, SELFPAY ==
[2022-04-06 14:53] LABS: NT Pro B Type Natriuretic Pept 592 pg/mL (0-450)
== END 2022-04-06 14:20 | disposition home or self-care (01) ==
LOC: CHSLAB 14:21
PROVIDERS: PCP Nurse Practitioner Family; Visit Provider Nurse Practitioner Family
DX: I50.9 Heart failure, unspecified (principal); R60.9 Edema, unspecified
CPT/HCPCS: 36415; 83880

== ENCOUNTER 2022-04-14 17:11 | Emergency (ER) | payer MEDICARE, SELFPAY ==
--- NOTE | ~2022-04-14 | XR_ITS ---
EXAMINATION: XR chest 2V Exam Date/Time: 04/14/2022 17:55 CDT HISTORY: fatigued, generalized weakness Comparison: 04/01/2022. RESULT: Lines, tubes, and devices: Implanted right chest port remains in good position. Lungs and pleura: Emphysematous change. Nodular opacities project over the posterior costophrenic bansal lcus in the lateral view. Left costophrenic angle blunting. Cardiomediastinal silhouette: Stable cardiomediastinal silhouette. Other: No acute osseous or upper abdominal finding. IMPRESSION: Small left pleural effusion. Nodular posterior lung opacities may represent artifact, atelectasis, or pulmonary nodules. Reviewed, dictated and finalized at location K. IMPRESSION: Small left pleural effusion. Nodular posterior lung opacities may represent art ifact, atelectasis, or pulmonary nodules.
[2022-04-14 17:23] VITALS: BP 187/88; PULSE 87; RESP 20; TEMP 36.7; O2SAT 95
--- NOTE | 2022-04-14 17:24 | ED.WEAKNESS ---
HPI - Weakness General Chief complaint: Weakness Stated complaint: weakness, nausea Time Seen by Provider: 04/14/22 17:11 Source: patient Mode of arrival: ambulatory Limitations: no limitations History of Present Illness HPI Narrative: patient states this morning he has had some generalized weakness and says he just feels like crap . He denies any other associated symptoms except for some mild nausea no vomiting. Denies any fever chills, cough, sore throat, headache, urinary symptoms, chest pain, diarrhea or vomiting. Says he feels a little short of breath when he exerts himself but he also states that comes and goes and is not really new. Complaint: generalized weakness Onset (ago): day(s) (8) Duration: constant Location: generalized Migration: none Severity: moderate Relieving factors: none Exacerbating factors: movement and exertion Associated symptoms: nausea/vomiting ( Nausea only) Related Data Home Medications Medication Instructions Recorded Confirmed chlorthalidone 25 mg tablet 12.5 mg PO QAM 10/08/19 04/08/22 diltiazem HCl 240 mg 240 mg PO QAM 10/08/19 04/08/22 capsule,extended release 24 hr lisinopril 40 mg tablet 40 mg PO QAM 10/08/19 04/08/22 multivitamin 1 tablet PO QAM 12/15/20 04/08/22 doxazosin 8 mg tablet 4 mg PO HS 12/29/21 04/08/22 Allergies Allergy/AdvReac Type Severity Reaction Status Date / Time No Known Allergies Allergy Verified 04/14/22 17:39 [facility] Past Medical History Medical History AAA (abdominal aortic aneurysm) Anemia Arthritis BPH (benign prostatic hyperplasia) Cholangiocarcinoma (~02/2022) Gait disturbance Hip osteoarthritis History of GI bleed HTN (hypertension) Hx of benign neoplasm of bladder Obesity, Class II, BMI 35-39.9 Pain in unspecified hip Surgical History Surgical History History of appendectomy 11-25-2009 History of bilateral cataract extraction History of bowel resection History of removal of cyst approx. 2013 History of surgery history of tumor removed from bladder; took quarterly treatments (cysto and BCG) Dr. Rivera; all clear as of 07/01/15, last BCG treatment 6-4-13 S/P AAA repair using straight graft 2011 Family History Family History Father Family history of malignant neoplasm Mother Family history of malignant neoplasm Family history of type 2 diabetes mellitus Social History Social History Smoking packs per day: 2 Smoking cigarettes per day: 40.0 Years smoked: 50 Smoking pack-years: 100.00 Smoking status: Former smoker Tobacco type: cigarettes Second hand tobacco smoke exposure: No Smoking end date: 11/07/09 Alcohol intake: current Alcohol use details: 2-4 DRINKS/MONTH Substance use: never Substance use type: does not use Gender identity (if verbalized by the patient): Male Spiritual care concerns: No Exam Const: General: no acute distress, alert and ill appearing chronically Nutritional Appearance: well nourished Orientation/consciousness: patient oriented x3 Limitations: no limitations HENMT: Head: normal to inspection Ears: external ears normal Face and sinus: normal facial exam Mouth: Yes moist mucous membranes Eyes: Conjunctivae: conjunctivae normal Pupils: Equal, round and reactive pupils present EOM: EOMs intact bilaterally Neck: Neck: normal visual inspection Resp: Effort & Inspection: normal respiratory effort Auscultation: clear to auscultation bilaterally Cardio: Rate: regular rate Rhythm: regular rhythm Back/Spine/Pelvis: Cervical Spine: cervical ROM normal Thoracic/Lumbar Spine: thoraco-lumbar ROM normal Skin: General skin exam: normal color Rashes: no rashes Neuro: General: patient oriented x3, moves all extremities, no focal motor deficits and CN
[2022-04-14 17:51] LABS: Hematocrit 30.1 % (37.0-46.0); Hemoglobin 9.5 g/dL (12.4-15.3); Mean Corpuscular HGB Conc 31.6 g/dL (32.0-36.0); Mean Corpuscular Hemoglobin 27.4 pg (27.0-31.0); Mean Corpuscular Volume 86.7 fL (78.0-102.0); Mean Platelet Volume 9.5 fl (8.7-11.0); Platelet Count Result 155 K/mm3 (150-420); Red Blood Count 3.47 M/mm3 (4.70-6.10); Red Cell Distribution Width 15.2 % (11.6-14.4); White Blood Count 4.2 K/mm3 (4.8-10.8)
[2022-04-14 18:05] LABS: Alanine Aminotransferase 43 U/L (16-63); Albumin Level 2.5 g/dL (3.4-5.0); Alkaline Phosphatase 175 U/L (46-116); Anion Gap 7 mmol/L (8-16); Aspartate Amino Transferase 25 U/L (15-37); Bilirubin,Total 0.5 mg/dL (0.00-1.00); Blood Urea Nitrogen 27 mg/dL (7-18); CRP 7.3 mg/dL (0.0-0.9); Calcium 8.6 mg/dL (8.5-10.1); Carbon Dioxide 33 mmol/L (21-32); Chloride 100 mmol/L (98-108); Estimated Glomerular Filt Rate > 60; Glucose 94 mg/dL (70-99); Osmolality Calculated 295 mOsm/kg (285-295); Potassium 3.2 mmol/L (3.5-5.1); Sodium 140 mmol/L (136-145); Total Protein 5.9 g/dL (6.4-8.2)
[2022-04-14 18:14] LABS: NT Pro B Type Natriuretic Pept 2042 pg/mL (0-450)
[2022-04-14 18:23] LABS: Band Neutrophils Percent 2 % (0-6); Basophils Absolute Manual 0.04 K/mm3 (0-0.1); Basophils Percent Manual 1 % (0-1); Eosinophils Absolute Manual 0.12 K/mm3 (0.02-0.5); Eosinophils Percent Manual 3 % (1-6); Lymphocytes Percent Manual 24 % (18-44); Metamyelocytes Percent 1 %; Monocytes Absolute Manual 0.54 K/mm3 (0.1-0.90); Monocytes Percent Manual 13 % (3-9); Neutrophils Absolute Manual 2.43 K/mm3 (1.3-6.7); Neutrophils Percent Manual 56 % (46-73); Total Cells Counted 100
[2022-04-14 18:24] LABS: Platelet Estimate Adequate (Adequate)
[2022-04-14 19:28] LABS: SARS-CoV-2 RNA PCR Negative (Negative)
[2022-04-14] MEDS: POTASSIUM BICARBONATE 25 MEQ TABEF 50 MEQ PO (20:07)
[2022-04-14] MEDS: FUROSEMIDE 40 MG TABLET PO (20:07)
[2022-04-14 21:05] VITALS: BP 168/93; PULSE 79; RESP 20; O2SAT 96
== END 2022-04-14 20:18 | disposition home or self-care (01) ==
PROVIDERS: Emergency Provider Emergency Medicine; PCP Family Medicine
DX: I50.21 Acute systolic (congestive) heart failure (principal); Z20.822 Contact with and (suspected) exposure to COVID-19; Z87.891 Personal history of nicotine dependence; I11.0 Hypertensive heart disease with heart failure
CPT/HCPCS: 36415; 71046; 80053; 83880; 85025; 86140; 99283; A9270; C9803; U0003; U0005

== ENCOUNTER 2022-04-30 12:22 | Outpatient (CLI) | payer MEDICARE, SELFPAY ==
--- NOTE | 2022-04-30 12:29 | ECHO_ITS ---
Patient Info Name: Forrest Kong Age: 76 years : 1945 Gender: Male Ht: 70 in Wt: 235 lbs BSA: 2.33 m2 HR: 63 bpm BP: 107 / 46 mmHg Technical Quality: Good Exam Date: 04/30/2022 12:35 PM Exam Location: [facility] Patient Status: Outpatient Admit Date: 04/30/2022 Staff Ordering Physician: Jeffrey Lugo DO Mold Technician: John Man RDCS, RT Attending Provider: Jeffrey Lugo DO Referring Physician: Parish MERINO; Exam Type: CA echo doppler color flow Study Info Indications I10 - Essential (primary) hypertension Complete two-dimensional, color flow and Doppler transthoracic echocardiogram is performed. Strain analysis performed. Summary 1. Complete two-dimensional, color flow and Doppler transthoracic echocardiogram is performed. 2. Left ventricular chamber dimension is normal. 3. Left ventricular systolic function is normal, estimated at 55-60%. 4. There is moderately increased left ventricular wall thickness. 5. The left ventricular diastolic function is grade I diastolic dysfunction. 6. E/e' 8 is minimally elevated. 7. Global longitudinal strain is abnormal at -12.6%. 8. There is trace tricuspid valve regurgitation. 9. Dilated inferior vena cava with >50% collapse upon inspiration consistent with elevated right atrial pressure, 10 mmHg. Left Ventricle E/e' 8 is minimally elevated. Global longitudinal strain is abnormal at -12.6%. Left ventricular chamber dimension is normal. Left ventricular systolic function is normal, estimated at 55-60%. There is moderately increased left ventricular wall thickness. The left ventricular diastolic function is grade I diastolic dysfunction. Right Ventricle Right ventricular systolic function is normal and with normal TAPSE 2.5 cm. Right ventricular chamber dimension is normal. Left Atria Left atrial chamber dimension is normal. Right Atria Right atrial chamber dimension is normal. Aortic Valve The aortic valve is trileaflet. There is no aortic valve stenosis. There is no aortic valve regurgitation. Pulmonic Valve There is no pulmonic regurgitation. Mitral Valve There is no mitral valve stenosis. There is no mitral valve regurgitation. Tricuspid Valve RVSP is not calculated due to an inadequate TR jet. There is trace tricuspid valve regurgitation. Pericardium/Pleural There is no pericardial effusion. Inferior Vena Cava Dilated inferior vena cava with >50% collapse upon inspiration consistent with elevated right atrial pressure, 10 mmHg. Aorta The aortic root size at the sinus of Valsalva is normal. Left Ventricular Outflow Tract Name Value Normal LVOT 2D LVOT Diameter 2.1 cm LVOT Doppler LVOT Peak Velocity 83 cm/s LVOT Peak Gradient 2 mmHg LVOT Mean Gradient 1 mmHg LVOT VTI 16 cm LVOT VTI/AV VTI Ratio 0.7 LVOT Stroke Volume 54 ml Mitral Valve Name
== END 2022-04-30 12:23 | disposition home or self-care (01) ==
LOC: CHSIMG 12:23
PROVIDERS: PCP Family Medicine; Visit Provider Family Medicine
DX: I10 Essential (primary) hypertension (principal)
CPT/HCPCS: 93306

== ENCOUNTER 2022-05-11 11:57 | Observation (INO) | payer MEDICARE, SELFPAY ==
[2022-05-11] VITALS (21 sets, daily range): BP systolic 100–149; BP diastolic 43–68; PULSE 79–80; RESP 16–18; TEMP 36.4–36.7; O2SAT 90–97; BMI 32.0
--- NOTE | ~2022-05-11 | XR_ITS ---
EXAMINATION: XR chest 1V portable Exam Date/Time: 05/11/2022 15:20 CDT HISTORY: weakness elevated wbc Comparison: 04/14/2022. RESULT: Lines, tubes, and devices: Right chest implanted port terminating in the SVC. Lungs and pleura: Slightly increased left basilar opacity and angle blunting. Cardiomediastinal silhouette: Stable cardiomediastinal silhouette. Other: No acute osseous or upper abdominal finding. IMPRESSION: Left basilar atelectasis/consolidation. Slightly increased small left pleural effusion. Reviewed, dictated and finalized at location K. IMPRESSION: Left basilar atelectasis/consolidation. Slightly increased small left pleural e ffusion.
--- NOTE | ~2022-05-11 | US_ITS ---
EXAMINATION: US renal BI DATE: 05/12/2022 10:51 INDICATION: Acute kidney injury TECHNIQUE: Multiple grayscale and Doppler ultrasound images of the kidneys were obtained. COMPARISON: None. FINDINGS: The right kidney measures 11.7 x 5.8 x 6.7 cm. The left kidney measures 12.4 x 5.2 x 6.9 cm and contains a 1.2 cm cyst. The kidneys demonstrate normal parenchymal echogenicity. There is no hyd ronephrosis. The bladder is incompletely distended but unremarkable. IMPRESSION: 1. Unremarkable kidneys without hydronephrosis. Reviewed, dictated and finalized at location B.
--- NOTE | 2022-05-11 12:06 | ED.WEAKNESS ---
HPI - Weakness General Chief complaint: Weakness Stated complaint: WEAKNESS Time Seen by Provider: 05/11/22 12:07 Source: patient and RN notes reviewed Mode of arrival: ambulatory Limitations: no limitations History of Present Illness HPI Narrative: Patient has a history of bile duct cancer and has been taking chemo therapies. He has only had 3 treatments so far. He says he has just been generally feeling weak all over no energy decreased appetite for the last week. He denies any pain. He denies any chest pain shortness of breath. Complaint: generalized weakness Onset (ago): week(s) (1) Duration: constant Location: generalized Migration: none Severity: moderate Relieving factors: none Exacerbating factors: none Associated symptoms: denies other symptoms Related Data Home Medications Medication Instructions Recorded Confirmed chlorthalidone 25 mg tablet 12.5 mg PO QAM 10/08/19 05/11/22 diltiazem HCl 240 mg 240 mg PO QAM 10/08/19 05/11/22 capsule,extended release 24 hr lisinopril 40 mg tablet 40 mg PO QAM 10/08/19 05/11/22 multivitamin 1 tablet PO QAM 12/15/20 05/11/22 doxazosin 8 mg tablet 4 mg PO HS 12/29/21 05/11/22 Allergies Allergy/AdvReac Type Severity Reaction Status Date / Time No Known Allergies Allergy Verified 05/11/22 12:14 Review of Systems Review of Systems: All systems reviewed & are unremarkable except as noted in HPI and below PMFSH Past Medical History Medical History AAA (abdominal aortic aneurysm) Anemia Arthritis BPH (benign prostatic hyperplasia) Cholangiocarcinoma (~02/2022) Gait disturbance Hip osteoarthritis History of GI bleed HTN (hypertension) Hx of benign neoplasm of bladder Obesity, Class II, BMI 35-39.9 Pain in unspecified hip Surgical History Surgical History History of appendectomy 11-25-2009 History of bilateral cataract extraction History of bowel resection History of removal of cyst approx. 2013 History of surgery history of tumor removed from bladder; took quarterly treatments (cysto and BCG) Dr. Rivera; all clear as of 07/01/15, last BCG treatment -02-17 S/P AAA repair using straight graft 2011 Family History Family History Father Family history of malignant neoplasm Mother Family history of malignant neoplasm Family history of type 2 diabetes mellitus Social History Social History Smoking packs per day: 2 Smoking cigarettes per day: 40.0 Years smoked: 50 Smoking pack-years: 100.00 Smoking status: Never smoker Tobacco type: cigarettes Second hand tobacco smoke exposure: Yes Smoking end date: 11/07/09 Alcohol intake: never Alcohol use details: 2-4 DRINKS/MONTH Substance use: never Substance use type: does not use Gender identity (if verbalized by the patient): Male Spiritual care concerns: No Exam Const: General: no acute distress, alert and ill appearing chronically Nutritional Appearance: well nourished and obese Orientation/consciousness: patient oriented x3 Limitations: no limitations HENMT: Head: normal to inspection Ears: external ears normal General nose exam: Normal external nose present Face and sinus: normal facial exam Mouth: Yes moist mucous membranes Eyes: Conjunctivae: conjunctivae normal Pupils: Equal, round and reactive pupils present EOM: EOMs intact bilaterally Neck: Neck: normal visual inspection Resp: Effort & Inspection: normal respiratory effort Auscultation: clear to auscultation bilaterally Cardio: Rate: regular rate Rhythm: regular rhythm GI: GI Palp: Yes Soft to palpation and No Tenderness to palpation present (GI) Auscultation: normal bowel sounds Back/Spine/Pelvis: Cervical Spine: cervical ROM normal Thoracic/Lumbar Spine: thoraco-lumbar ROM normal
[2022-05-11 12:40] LABS: Basophils Absolute Auto 0.04 K/mm3 (0.00-0.10); Basophils Percent Auto 0.4 % (0.0-1.0); Hematocrit 29.1 % (37.0-46.0); Hemoglobin 9.4 g/dL (12.4-15.3); Immature Granulocyte Absolute 0.18 K/mm3 (0.00-0.00); Immature Granulocyte Percent A 1.6 % (0.0-0.0); Lymphocytes Absolute Auto 0.77 K/mm3 (1.10-4.50); Lymphocytes Percent Auto 6.8 % (18.0-42.0); Mean Corpuscular HGB Conc 32.3 g/dL (32.0-36.0); Mean Corpuscular Hemoglobin 29.4 pg (27.0-31.0); Mean Corpuscular Volume 90.9 fL (78.0-102.0); Monocytes Absolute Auto 0.89 K/mm3 (0.10-0.90); Monocytes Percent Auto 7.9 % (2.0-11.0); Neutrophils Absolute Auto 9.4 K/mm3 (1.7-7.2); Neutrophils Percent Auto 83.3 % (50.0-70.0); Platelet Count Result 124 K/mm3 (150-420); Red Cell Distribution Width 19.1 % (11.6-14.4); White Blood Count 11.3 K/mm3 (4.8-10.8)
--- NOTE | 2022-05-11 12:45 | PC.NURSE ---
water provided to pt at this time. pt is repositioned in bed at this time. will continue to monitor.
[2022-05-11 12:56] LABS: Alanine Aminotransferase 23 U/L (16-63); Albumin Level 2.2 g/dL (3.4-5.0); Alkaline Phosphatase 127 U/L (46-116); Anion Gap 9 mmol/L (8-16); Aspartate Amino Transferase 33 U/L (15-37); Bilirubin,Total 0.8 mg/dL (0.00-1.00); Blood Urea Nitrogen 39 mg/dL (7-18); Calcium 8.5 mg/dL (8.5-10.1); Carbon Dioxide 36 mmol/L (21-32); Chloride 99 mmol/L (98-108); Estimated CRCL calculation 31 ml/min; Estimated Glomerular Filt Rate 29; Glucose 102 mg/dL (70-99); Osmolality Calculated 307 mOsm/kg (285-295); Sodium 144 mmol/L (136-145); Total Protein 5.5 g/dL (6.4-8.2)
[2022-05-11 12:59] LABS: Lactic Acid Reflex 1.3 mmol/L (0.4-2.0)
[2022-05-11 13:21] LABS: Magnesium 1.7 mg/dL (1.8-2.4); NT Pro B Type Natriuretic Pept 905 pg/mL (0-450)
[2022-05-11] MEDS: SODIUM CHLORIDE 0.9% IV 1,000 ML 999 ML IV CONT (13:24)
[2022-05-11] MEDS: POTASSIUM BICARBONATE 25 MEQ TABEF 50 MEQ PO (14:11)
--- NOTE | 2022-05-11 14:32 | ECG_ITS ---
Measurements Intervals [place] Rate: 67 P: 73 MD: 158 QRS: 39 QRSD: 122 T: 40 QT: 410 QTc: 436 Interpretive Statements SINUS RHYTHM INTRAVENTRICULAR CONDUCTION DELAY BORDERLINE R WAVE PROGRESSION, ANTERIOR LEADS BASELINE ARTIFACT- I, III, AVL, AVF BORDERLINE ECG Electronically Signed On 05-11-2022 15:09:03 CDT by Rolando Nagel D.O.
--- NOTE | 2022-05-11 14:45 | PC.NURSE ---
PT AND DAUGHTER ARE AGREEABLE TO ADMISSION.
--- NOTE | 2022-05-11 14:58 | PC.NURSE ---
WHITE SODA PROVIDED TO PT AT THIS TIME. AWAITING ROOM ASSIGNMENT FOR ADMISSION. WILL CONTINUE TO MONITOR.
--- NOTE | 2022-05-11 15:01 | PC.NURSE ---
PT NOW REPORTS NAUSEATED. EMESIS BAG PROVIDED. DC SODA. ERP NOTIFIED, ZOFRAN TO BE GIVEN.
[2022-05-11] MEDS: ONDANSETRON INJ 4 MG/2 ML VIAL IV PUSH (15:04)
--- NOTE | 2022-05-11 15:32 | PC.NURSE ---
PT WAS INCONTINENT OF YELLOW LIQUID STOOL, THEN ASSISTED TO RR TO FINISH. PERICARE AND CLEAN DEPEND PROVIDED.
--- NOTE | 2022-05-11 16:03 | ADMGEN ---
This patient, Forrest Kong, was admitted to 2nd Floor Room 203-2. Patient/family oriented to hospital policies and general routines including ID bracelet, bed and alarms, visiting hours, pain management, procedures, bathroom and other care routines, personal items, smoking policy, room service/diet, and visiting hours. Daughter Hayde will bring in DNI papers and his phone fire pilot, pt has cane from home with him, reading glasses are at home Information on how to activate the Rapid Response Team has been discussed. Patient/Family are encouraged to report perceived risks to care and to ask questions if they do not understand what they are told or what they should do.
[2022-05-11] MEDS: SODIUM CHLORIDE 0.9% IV 1,000 ML 75 ML IV CONT (16:35)
[2022-05-11] MEDS: POTASSIUM CHLORIDE 20 MEQ TABLET PO (16:36)
[2022-05-11] MEDS: MEGESTROL ACETATE (*CHEMO) 40 MG TABLET PO ×2 (16:36→21:32)
[2022-05-11] MEDS: DOXAZOSIN MESYLATE 2 MG TABLET 4 MG PO (21:27)
[2022-05-11] MEDS: MIRTAZAPINE 15 MG TABLET 30 MG PO (21:32)
[2022-05-12] VITALS: BP 127/42; PULSE 66; RESP 18; TEMP 36.9; O2SAT 93
--- NOTE | 2022-05-12 00:05 | PC.NURSE ---
Pt resting quietly in bed and doesnt voice any c/o discomfort or shortness of breath. Side rails up x2 and call kim within reach.
--- NOTE | 2022-05-12 02:09 | PC.NURSE ---
Pt sitting up at bedside at this time; Pt doesnt voice any c/o discomfort or shortness of breath.
--- NOTE | 2022-05-12 04:18 | PC.NURSE ---
Pt asleep and no signs of discomfort or respiratory distress noted.
[2022-05-12 05:18] LABS: Hematocrit 27.3 % (37.0-46.0); Hemoglobin 8.4 g/dL (12.4-15.3); Mean Corpuscular HGB Conc 30.8 g/dL (32.0-36.0); Mean Corpuscular Hemoglobin 28.6 pg (27.0-31.0); Mean Corpuscular Volume 92.9 fL (78.0-102.0); Mean Platelet Volume 10.2 fl (8.7-11.0); Platelet Count Result 118 K/mm3 (150-420); Red Blood Count 2.94 M/mm3 (4.70-6.10); Red Cell Distribution Width 19.8 % (11.6-14.4); White Blood Count 10.2 K/mm3 (4.8-10.8)
[2022-05-12] MEDS: SODIUM CHLORIDE 0.9% IV 1,000 ML 75 ML IV CONT ×2 (05:24→18:50)
[2022-05-12 05:39] LABS: Alanine Aminotransferase 23 U/L (16-63); Albumin Level 2.2 g/dL (3.4-5.0); Alkaline Phosphatase 122 U/L (46-116); Anion Gap 4 mmol/L (8-16); Aspartate Amino Transferase 32 U/L (15-37); Bilirubin,Total 0.6 mg/dL (0.00-1.00); Blood Urea Nitrogen 44 mg/dL (7-18); Calcium 7.8 mg/dL (8.5-10.1); Carbon Dioxide 37 mmol/L (21-32); Chloride 102 mmol/L (98-108); Estimated CRCL calculation 30 ml/min; Estimated Glomerular Filt Rate 29; Glucose 90 mg/dL (70-99); Magnesium 1.6 mg/dL (1.8-2.4); Osmolality Calculated 307 mOsm/kg (285-295); Potassium 3.3 mmol/L (3.5-5.1); Sodium 143 mmol/L (136-145); Total Protein 5.2 g/dL (6.4-8.2)
--- NOTE | 2022-05-12 06:15 | PC.NURSE ---
Pt watching TV and doesnt voice any c/o discomfort.
[2022-05-12 08:00] VITALS: BP 118/65; PULSE 77; RESP 18; TEMP 36.8; O2SAT 94
[2022-05-12] MEDS: POTASSIUM CHLORIDE 20 MEQ TABLET PO ×2 (08:15→16:11)
[2022-05-12] MEDS: lisinopriL 20 MG TABLET 40 MG PO (08:16)
[2022-05-12] MEDS: MULTIVITAMINS THERAPEUTIC TAB (*BKC) 1 TABLET PO (08:16)
[2022-05-12] MEDS: ENOXAPARIN 40 MG/0.4 ML SYRINGE SUB-Q (08:17)
[2022-05-12] MEDS: CHLORTHALIDONE 12.5 MG TAB PO (08:55)
[2022-05-12] MEDS: MEGESTROL ACETATE (*CHEMO) 40 MG TABLET PO ×4 (08:55→21:02)
--- NOTE | 2022-05-12 09:36 | PM.IMHP ---
H&P: HPI History of Present Illness Date/Time: 05/12/22 09:36 Chief Complaint: Weakness, fatigue, Exhaustion Narrative: This is a 76 year old male that presented to the emergency room with Weakness. Patient has a past medical history of Bile Duct cancer in which he is actively taking chemo therapy that he has only received 3 treatments as he has not been able to have 3 other chemo treatments . Patient also has AAA, BPH, GI bleed, Hypertension, Obesity. Patient has also had a history of depression and seems depressed at this time. Currently he has some Acute renal failure Cr 2.22 that is new and his potassium has since improved currently 3.3. Patient is negative for COVID and or influenza but remains very weak. He currently is supposed to have chemo in the morning depending on labs. Due to patient having some CHF I will continue to have patient on some IVF and monitor his CR level and his fluid retention. Patient will require some home health services on discharge. We will plan on possible discharge in the morning so he is able to make it to his Chemo appointment. Depending on his labs. Review of Systems Review of Systems: Weakness All systems reviewed & are unremarkable except as noted in HPI and below [facility] Past Medical History Medical History AAA (abdominal aortic aneurysm) Anemia Arthritis BPH (benign prostatic hyperplasia) Cholangiocarcinoma (~02/2022) Gait disturbance Hip osteoarthritis History of GI bleed HTN (hypertension) Hx of benign neoplasm of bladder Obesity, Class II, BMI 35-39.9 Pain in unspecified hip Surgical History Surgical History History of appendectomy 11-25-2009 History of bilateral cataract extraction History of bowel resection History of removal of cyst approx. 2013 History of surgery history of tumor removed from bladder; took quarterly treatments (cysto and BCG) Dr. Rivera; all clear as of 07/01/15, last BCG treatment 04-10-13 S/P AAA repair using straight graft 2011 Family History Family History Father Family history of malignant neoplasm Mother Family history of malignant neoplasm Family history of type 2 diabetes mellitus Social History Social History Smoking packs per day: 2 Smoking cigarettes per day: 40.0 Years smoked: 50 Smoking pack-years: 100.00 Smoking status: Never smoker Tobacco type: cigarettes Second hand tobacco smoke exposure: Yes Smoking end date: 11/07/09 Alcohol intake: never Alcohol use details: 2-4 DRINKS/MONTH Substance use: never Substance use type: does not use Gender identity (if verbalized by the patient): Male Spiritual care concerns: No Comments At time as signature, I have reviewed and agree with nursing past medical, social, surgical and family history. Please see nursing chart for further information. There is no relevant family history pertinent to the presenting complaint. Meds Home Medications and Allergies Home Medications Medication Instructions Recorded Confirmed Type chlorthalidone 25 mg tablet 12.5 mg PO QAM 10/08/19 05/11/22 History diltiazem HCl 240 mg 240 mg PO QAM 10/08/19 05/11/22 History capsule,extended release 24 hr lisinopril 40 mg tablet 40 mg PO QAM 10/08/19 05/11/22 History multivitamin 1 tablet PO QAM 12/15/20 05/11/22 History doxazosin 8 mg tablet 4 mg PO HS 12/29/21 05/11/22 History hydrocodone 5 mg-acetaminophen 325 1 tablet PO Q6H PRN pain #7 tabs 03/09/22 05/11/22 Rx mg tablet albuterol sulfate 90 mcg/actuation 1 puff inhalation Q4H PRN 04/06/22 05/11/22 Rx aerosol inhaler (Ventolin HFA) shortness of breath or wheezing #8 grams mirtazapine 30 mg tablet 30 mg PO QHS #90 tabs 04/19/22 05/11/22 Rx furosemide 40 mg tablet 40 mg PO QAM 90 days #90 tabs
[2022-05-12 09:38] LABS: NT Pro B Type Natriuretic Pept 914 pg/mL (0-450)
[2022-05-12 15:44] VITALS: BP 132/45; PULSE 67; RESP 18; TEMP 36.8; O2SAT 95
[2022-05-12] MEDS: MIRTAZAPINE 15 MG TABLET 30 MG PO (21:01)
[2022-05-12] MEDS: DOXAZOSIN MESYLATE 2 MG TABLET 4 MG PO (21:02)
[2022-05-12 23:07] VITALS: BP 144/51; PULSE 70; RESP 18; TEMP 37.2; O2SAT 95
[2022-05-13 05:07] LABS: Hematocrit 26.4 % (37.0-46.0); Hemoglobin 8.2 g/dL (12.4-15.3); Mean Corpuscular HGB Conc 31.1 g/dL (32.0-36.0); Mean Corpuscular Hemoglobin 28.9 pg (27.0-31.0); Mean Platelet Volume 10.4 fl (8.7-11.0); Platelet Count Result 151 K/mm3 (150-420); Red Blood Count 2.84 M/mm3 (4.70-6.10); Red Cell Distribution Width 20.2 % (11.6-14.4); White Blood Count 8.7 K/mm3 (4.8-10.8)
[2022-05-13 05:20] LABS: Anion Gap 5 mmol/L (8-16); Blood Urea Nitrogen 47 mg/dL (7-18); Calcium 7.6 mg/dL (8.5-10.1); Carbon Dioxide 33 mmol/L (21-32); Chloride 104 mmol/L (98-108); Estimated CRCL calculation 32 ml/min; Estimated Glomerular Filt Rate 32; Glucose 101 mg/dL (70-99); Osmolality Calculated 306 mOsm/kg (285-295); Potassium 3.2 mmol/L (3.5-5.1); Sodium 142 mmol/L (136-145)
[2022-05-13 07:50] VITALS: BP 123/54; PULSE 64; RESP 18; TEMP 36.4; O2SAT 93
[2022-05-13] MEDS: lisinopriL 20 MG TABLET 40 MG PO (09:30)
[2022-05-13] MEDS: FUROSEMIDE INJ 40 MG/4 ML VIAL 20 MG IV PUSH (09:30)
[2022-05-13] MEDS: MEGESTROL ACETATE (*CHEMO) 40 MG TABLET PO (09:30)
[2022-05-13] MEDS: MULTIVITAMINS THERAPEUTIC TAB (*BKC) 1 TABLET PO (09:30)
[2022-05-13] MEDS: PANTOPRAZOLE 40 MG TABLET PO (09:31)
[2022-05-13] MEDS: CHLORTHALIDONE 12.5 MG TAB PO (09:31)
[2022-05-13] MEDS: POTASSIUM CHLORIDE 20 MEQ TABLET 40 MEQ PO (09:31)
[2022-05-13] MEDS: POTASSIUM CHLORIDE 20 MEQ TABLET PO (09:31)
[2022-05-13] MEDS: ENOXAPARIN 30 MG/0.3 ML SYRINGE SUB-Q (09:32)
--- NOTE | 2022-05-13 09:54 | PM.DS ---
DS: Admitting Diagnosis Discharge Date 05/13/2022 Admitting Diagnosis [place], Hypokalemia, Dehydration DS: Discharge Diagnosis Discharge Diagnosis (1) Acute on chronic kidney failure: Qualifiers: Acute renal failure type: unspecified Chronic kidney disease stage: unspecified stage Qualified Code(s): N17.9 - Acute kidney failure, unspecified; N18.9 - Chronic kidney disease, unspecified Code(s): N17.9 - Acute kidney failure, unspecified; N18.9 - Chronic kidney disease, unspecified Status: Acute Assessment and Plan: IVF low NS@75mls discontinued Kidney ultrasound: Unremarkable kidneys without hydronephrosis. Avoid nephrotoxic medication monitor BUN CREAt 44/2.22 (2) Chronic hypokalemia: Code(s): E87.6 - Hypokalemia Status: Acute Assessment and Plan: monitor electrolytes and replenish potassium 3.3 IVF discontinued (3) Obesity, Class II, BMI 35-39.9: Code(s): E66.9 - Obesity, unspecified Status: Acute Assessment and Plan: Low Sodium diet Monitor diet and move more (4) HTN (hypertension): Code(s): I10 - Essential (primary) hypertension Status: Acute Assessment and Plan: montior blood pressure Low sodium diet continue on blood pressure medication address and change medication accordingly DS: Summary Hospital Course Reason for hospitalization: Weakness, Dehydration Hospital Course: This is a 76 year old male that presented to the emergency room with Weakness. Patient has a past medical history of Bile Duct cancer in which he is actively taking chemo therapy that he has only received 3 treatments as he has not been able to have 3 other chemo treatments . Patient also has AAA, BPH, GI bleed, Hypertension, Obesity. ? Patient has also had a history of depression and seems depressed at this time. Patient had some Acute renal failure? Cr 2.22 that is improving currently 2.05 with potassium of 3.2. Mr. Kong is currently receiving chemo although he has missed his last three doses. Patient has a history of CHF so I had to gently rehydrate him. Patient has discussed with me that he would like to stop chemo as it makes him feel horrible and he is aware that this is not going to cure him. Patient wanted to discuss with his family I informed him it would be noriega to discuss with his oncologist as well. Patient is in need of home health services as they would be able to draw his labs as well. Patient has remained in the bed and does not want to get up. Patient is on a appetite stimulus.Appointment has been made with PCP and oncologist he will go home with oxygen as he already has some at home . Renal ultrasond showed:Unremarkable kidneys without hydronephrosis. Time Spent with Patient Time attestation: Total time spent providing and/or coordinating discharge services: Exam Narrative: GENERAL:.Ill appearing, well-nourished, and in no acute distress. HEAD:Normocephalic, atraumatic. EYES: PERRLA ENT: Nares clear, no rhinorrhea or epistaxis. Mucous membranes moist. CHEST: Clear to auscultation. No respiratory distress. HEART: Regular rate and rhythm. Normal peripheral pulses. ABDOMEN: Soft, nontender, nondistended, normal active bowel sounds. EXTREMITIES: Normal range of motion. Trace edema left foot. SKIN: Warm, dry, no rash. NEURO: No focal deficits. Alert and oriented x3 patient apathetic DS: Data Data Completed and Pending Labs on day of discharge: Labs from last 24 hours 05/13/22 05/13/22 04:59 04:59 WBC 8.7 RBC 2.84 L Hgb 8.2 L Hct 26.4 L MCV 93.0 MCH 28.9 MCHC 31.1 L RDW 20.2 H Plt Count 151 MPV 10.4 Sodium 142 Potassium 3.2 L Chloride 104 Carbon Dioxide 33 H Anion Gap 5 L BUN 47 H Creatinine 2.05 H Estim Creat Clear Calc 32 Estimated GFR 32 L Glucose 101 H Calculated Osmolality 306 H Calcium 7.6 L Discharge Plan Discharge Attending physic
--- NOTE | 2022-05-13 11:25 | PC.NURSE ---
Patient discharging home. Port site de-accessed, band aid applied to site, patient tolerated well. All discharge instructions and education reviewed with patient. Patient states understanding. All belongings gathered together and sent home with patient. This nurse accompanied pt to front door via wheelchair. Patient left via private vehicle with daughter-Questions answered for daughter, denies any further needs at discharge. [facility] is to follow patient.
--- NOTE | 2022-05-15 11:01 | PC.NURSE ---
Follow up call attempted, no answer
== END 2022-05-13 11:25 | disposition home health service (06) ==
LOC: CHSED 12:00 → CHS2ND 15:17
PROVIDERS: Nurse Practitioner; Nurse Practitioner Family; Admitting Provider Internal Medicine; Emergency Provider Emergency Medicine; PCP Family Medicine; Visit Provider Internal Medicine
DX: N17.9 Acute kidney failure, unspecified (principal); E87.6 Hypokalemia; C22.1 Intrahepatic bile duct carcinoma; I13.0 Hypertensive heart and chronic kidney disease with heart failure and stage 1 through stage 4 chronic kidney disease, or unspecified chronic kidney disease; I50.9 Heart failure, unspecified; N18.9 Chronic kidney disease, unspecified; N40.0 Benign prostatic hyperplasia without lower urinary tract symptoms; M16.10 Unilateral primary osteoarthritis, unspecified hip; F32.A Depression, unspecified; Z79.899 Other long term (current) drug therapy; Z87.891 Personal history of nicotine dependence
CPT/HCPCS: 36415; 71045; 76775; 80048; 80053; 83605; 83735; 83880; 85025; 85027; 93005; 96361; 96372; 96374; 96375; 97161; 97165; 99285; A9270; G0378; J1650; J1940; J2405; J7030

== ENCOUNTER 2022-05-21 09:52 | Outpatient (CLI) | payer MEDICARE, SELFPAY ==
--- NOTE | ~2022-05-21 | CT_ITS ---
EXAMINATION: CTA chest PE protocol DATE: 05/21/2022 10:52 INDICATION: Dyspnea and shortness of breath for one week. Patient gives history of cancer but uncerta in of location. Review of imaging studies reveals history of biopsy-proven cholangiocarcinoma Patient has had chemotherapy. TECHNIQUE: Computed tomography angiography (CTA) of the chest was performed with 100 mL Omnipaque-350 intravenous contrast timed to evaluate the pulmonary arteries. Coronal maximum intensity projection 3D-reconstructions were created by the technologist. Automated exposure control and iterative reconst ruction technique were employed. Exam dose: 975.25 mGy-cm total exam DLP. COMPARISON: None. FINDINGS: Right internal jugular Port-A-Cath. There is moderate opacification of the pulmonary arteries and no evidence of pulmonary embolism. There is extensive thoracic aortic as well as great vessel and coronary calcification. Mild thoracic aortic aneurysm, posterior aortic arch measuring up to 3.4 cm diameter. The ascending aorta measures approximately 3.7 cm diameter, the mid aortic arch 3.1 cm diameter. The descending thoracic aorta ap sures approximately 3.3 cm diameter. No thoracic aortic dissection. There is moderate pericardial effusion, measuring up to 1.6 cm thickness. Heart size is normal. There are scattered patchy focal areas of infiltrate including lateral right upper lobe, small locali zed infiltrate since the anterior and lateral middle lobe, and occasional patchy focal right lower lo be infiltrates. There are a couple of focal peripheral infiltrates in the anterolateral left apical a jt and infiltrate and/atelectasis at the base of the lingula and to a greater extent the base of the left lower lobe. There is bilateral hilar and mediastinal lymphadenopathy, a right paratracheal node measuring up to 1 1 x 14.7 mm, left superior mediastinal node 12.5 x 15.4 mm, aortopulmonary window node measuring 18 x 21.7 mm, precarinal node measuring 14 x 20 mm. There is right greater than left hilar adenopathy and prominent subcarinal lymphadenopathy. Mild bilateral pleural effusions, left greater than right. Mild perihepatic and perisplenic ascites. Severe degenerative disease at C5-6 and C6-7. Diffuse idiopathic skeletal hyperostosis of the thoraci c spine. No suspicious osteolytic or osteosclerotic lesions are noted. Prominent osteoarthritic changes at both glenohumeral joints. IMPRESSION: Scattered bilateral focal pulmonary infiltrates Mild bilateral pleural effusions, left greater than right Right greater than left hilar and more prominent mediastinal lymphadenopathy; consider metastatic dis ease, lymphoma Moderate pericardial effusion Mild thoracic aortic aneurysm Right Port-A-Cath Reviewed, dictated and finalized at Location A. Reviewed, dictated and finalized at location A. IMPRESSION: Scattered bilateral focal pulmonary infiltrates Mild bilateral pleural effusions, left greater than right Right greater than left hilar and more prominent mediastinal lymphadenopathy; c onsider metastatic disease, lymphoma Moderate pericardial effusion Mild thoracic aortic aneurysm Right Port-A-Cath
== END 2022-05-21 09:53 | disposition home or self-care (01) ==
LOC: CHSIMG 09:53
PROVIDERS: PCP Family Medicine; Visit Provider Family Medicine
DX: R06.00 Dyspnea, unspecified (principal); Z85.9 Personal history of malignant neoplasm, unspecified
CPT/HCPCS: 71275; Q9967

== ENCOUNTER 2022-05-21 13:48 | Observation (INO) | payer MEDICARE, SELFPAY ==
[2022-05-21] VITALS (8 sets, daily range): BP systolic 119–148; BP diastolic 56–73; PULSE 57–82; RESP 17–21; TEMP 36.3–37.2; O2SAT 95–96; BMI 34.4
--- NOTE | 2022-05-21 14:05 | ED.GENADULT ---
HPI - General Adult General Chief complaint: Shortness of Breath/Dyspnea Stated complaint: doctor referral History of Present Illness HPI narrative: Forrest is a 76M with a complex PMH including MDD, AAA, OA, HTN and cholangiocarcinoma that presented to the ED with SOB. He was seen at his PCP office yesterday where a CTA was ordered. However, he was not able to get it done until today. It showed a moderate pericardial effusion. He denies any CP but he is still very SOB and has a lot of fatigue. No fevers or chills. Related Data Home Medications Medication Instructions Recorded Confirmed diltiazem HCl 240 mg 240 mg PO QAM 10/08/19 05/21/22 capsule,extended release 24 hr lisinopril 40 mg tablet 40 mg PO QAM 10/08/19 05/21/22 multivitamin 1 tablet PO QAM 12/15/20 05/21/22 doxazosin 8 mg tablet 4 mg PO HS 12/29/21 05/21/22 Allergies Allergy/AdvReac Type Severity Reaction Status Date / Time No Known Allergies Allergy Verified 05/21/22 14:01 Review of Systems Constitutional: Constitutional: Reports no additional constitutional complaints Eyes: Eyes: Reports no additional eye complaints ENT: Reports system reviewed and no additional complaints, except as documented Cardiovascular: Comments: as per HPI Respiratory: Respiratory: Reports no additional respiratory complaints Gastrointestinal: Gastrointestinal: Reports as per HPI Genitourinary: Genitourinary: Reports no additional male genitourinary complaints Musculoskeletal: Musculoskeletal: Reports no additional musculoskeletal complaints Integumentary/Breasts: Skin/Breast: Reports system reviewed and no additional complaints, except as docu Neurologic: Reports system reviewed and no additional complaints, except as documented Psychiatric: Psychiatric: Reports no additional psychiatric complaints Endocrine: Endocrine: Reports no additional endocrine complaints Hematologic/Lymphatic: Hematologic/Lymphatic: Reports no additional hematologic/lymphatic complaints Allergic/Immunologic: Allergic/Immunologic: Reports no additional allergic/immunologic complaints [facility] Past Medical History Medical History AAA (abdominal aortic aneurysm) Anemia Arthritis BPH (benign prostatic hyperplasia) Cholangiocarcinoma (~02/2022) Gait disturbance Hip osteoarthritis History of GI bleed HTN (hypertension) Hx of benign neoplasm of bladder Obesity, Class II, BMI 35-39.9 Pain in unspecified hip Surgical History Surgical History History of appendectomy 11-25-2009 History of bilateral cataract extraction History of bowel resection History of removal of cyst approx. 2013 History of surgery history of tumor removed from bladder; took quarterly treatments (cysto and BCG) Dr. Rivera; all clear as of 07/01/15, last BCG treatment 6-- S/P AAA repair using straight graft 2011 Family History Family History Father Family history of malignant neoplasm Mother Family history of malignant neoplasm Family history of type 2 diabetes mellitus Social History Social History (Updated 05/20/22 @ 07:01 by Alysia Sow) Smoking packs per day: 2 Smoking cigarettes per day: 40.0 Years smoked: 50 Smoking pack-years: 100.00 Smoking status: Former smoker Tobacco type: cigarettes and pipe Second hand tobacco smoke exposure: Yes Smoking end date: 11/07/09 Alcohol intake: former Alcohol use details: 2-4 DRINKS/MONTH Substance use: never Substance use type: does not use Gender identity (if verbalized by the patient): Male Spiritual care concerns: No Exam Const: General: no acute distress and alert Nutritional Appearance: well nourished Orientation/consciousness: patient oriented x3 HENMT: Head: normal to inspection Ears: external ears normal General nose exam: Normal external
--- NOTE | 2022-05-21 14:15 | ECG_ITS ---
Measurements Intervals [place] Rate: 76 P: 50 CA: 164 QRS: 47 QRSD: 105 T: -10 QT: 380 QTc: 428 Interpretive Statements SINUS RHYTHM WITH SINUS ARRHYTHMIA DELAYED PRECORDIAL R/S TRANSITION NONSPECIFIC ST & T-WAVE ABNORMALITY- INFERIOR LEADS BORDERLINE ECG Electronically Signed On 05-21-2022 18:45:05 CDT by Rolando Nagel D.O.
[2022-05-21 14:28] LABS: Basophils Absolute Auto 0.08 K/mm3 (0.00-0.10); Basophils Percent Auto 1.1 % (0.0-1.0); Hematocrit 24.9 % (37.0-46.0); Hemoglobin 7.9 g/dL (12.4-15.3); Immature Granulocyte Absolute 0.14 K/mm3 (0.00-0.00); Lymphocytes Absolute Auto 0.71 K/mm3 (1.10-4.50); Lymphocytes Percent Auto 10.2 % (18.0-42.0); Mean Corpuscular HGB Conc 31.7 g/dL (32.0-36.0); Mean Corpuscular Hemoglobin 29.6 pg (27.0-31.0); Mean Corpuscular Volume 93.3 fL (78.0-102.0); Mean Platelet Volume 9.6 fl (8.7-11.0); Monocytes Absolute Auto 1.04 K/mm3 (0.10-0.90); Monocytes Percent Auto 14.9 % (2.0-11.0); Neutrophils Percent Auto 71.8 % (50.0-70.0); Platelet Count Result 204 K/mm3 (150-420); Red Blood Count 2.67 M/mm3 (4.70-6.10); Red Cell Distribution Width 22.7 % (11.6-14.4)
--- NOTE | 2022-05-21 14:36 | PC.NURSE ---
Attempted IV access x's 2 unsuccessful.
[2022-05-21 14:53] LABS: Alanine Aminotransferase 35 U/L (16-63); Alkaline Phosphatase 109 U/L (46-116); Anion Gap 9 mmol/L (8-16); Aspartate Amino Transferase 35 U/L (15-37); Bilirubin,Total 0.3 mg/dL (0.00-1.00); Blood Urea Nitrogen 33 mg/dL (7-18); Carbon Dioxide 27 mmol/L (21-32); Chloride 106 mmol/L (98-108); Estimated CRCL calculation 42 ml/min; Estimated Glomerular Filt Rate 40; Glucose 99 mg/dL (70-99); NT Pro B Type Natriuretic Pept 952 pg/mL (0-450); Osmolality Calculated 301 mOsm/kg (285-295); Potassium 3.3 mmol/L (3.5-5.1); Sodium 142 mmol/L (136-145); Total Protein 5.2 g/dL (6.4-8.2); Troponin I 29.5 ng/L (0.00-60.4)
--- NOTE | 2022-05-21 15:50 | PC.NURSE ---
pt up to bedside chair. at bedside. pt denies sob or pain. no change in monitor pattern. [facility] and [facility] both without bed availability. no beds available at [place]. awaiting call back from [facility] for bed availability
[2022-05-21] MEDS: LORazepam INJ (*CRX) 2 MG/ML VIAL 0.5 MG IV PUSH (16:12)
--- NOTE | 2022-05-21 18:40 | PC.NURSE ---
admission in progress. pt resting quietly with family at bedside. denies c/o at this time. resp even and non-labored.
--- NOTE | 2022-05-21 19:20 | ADMGEN ---
This patient, Forrest Kong, was admitted to 2nd Floor Room 208-2. Patient/family oriented to hospital policies and general routines including ID bracelet, bed and alarms, visiting hours, pain management, procedures, bathroom and other care routines, personal items, smoking policy, room service/diet, and visiting hours. Information on how to activate the Rapid Response Team has been discussed. Patient/Family are encouraged to report perceived risks to care and to ask questions if they do not understand what they are told or what they should do.
[2022-05-21] MEDS: MEGESTROL ACETATE (*CHEMO) 40 MG TABLET PO (20:41)
[2022-05-21] MEDS: MIRTAZAPINE 15 MG TABLET 30 MG PO (20:42)
[2022-05-21] MEDS: DOXAZOSIN MESYLATE 2 MG TABLET 4 MG PO (20:42)
[2022-05-22 08:00] VITALS: BP 136/67; PULSE 84; RESP 16; TEMP 36.7; O2SAT 94
--- NOTE | 2022-05-22 08:39 | PM.SD2 ---
Same Day Admit/Disch: HPI History of Present Illness Chief complaint: Pericardial Effusion Narrative: Forrest Kong is a 76 year old male that presented to the emergency department with complaints of shortness of breath. Patient has a past medical history of AAA, anemia, arthritis, BPH,Cholangiocarcinoma, and hip pain.. Patient imaging indicated mild pleural effusion. Patient opted for hospice care at this time did not want transfer or aggressive care we will arrange for hospice today. Patient notes that he has occasional shortness of breath but appears to be stable no obvious distress noted. Spoke with both patient and family members at bedside explained hospice in the process. [facility] Past Medical History Medical History AAA (abdominal aortic aneurysm) Anemia Arthritis BPH (benign prostatic hyperplasia) Cholangiocarcinoma (~02/2022) Gait disturbance Hip osteoarthritis History of GI bleed HTN (hypertension) Hx of benign neoplasm of bladder Obesity, Class II, BMI 35-39.9 Pain in unspecified hip Surgical History Surgical History History of appendectomy 11-25-2009 History of bilateral cataract extraction History of bowel resection History of removal of cyst approx. 2013 History of surgery history of tumor removed from bladder; took quarterly treatments (cysto and BCG) Dr. Rivera; all clear as of 07/01/15, last BCG treatment 04-10-13 S/P AAA repair using straight graft 2011 Family History Family History Father Family history of malignant neoplasm Mother Family history of malignant neoplasm Family history of type 2 diabetes mellitus Social History Social History (Updated 05/20/22 @ 07:01 by Alysia Sow) Smoking packs per day: 2 Smoking cigarettes per day: 40.0 Years smoked: 50 Smoking pack-years: 100.00 Smoking status: Former smoker Tobacco type: cigarettes and pipe Second hand tobacco smoke exposure: Yes Smoking end date: 11/07/09 Alcohol intake: former Alcohol use details: 2-4 DRINKS/MONTH Substance use: never Substance use type: does not use Gender identity (if verbalized by the patient): Male Spiritual care concerns: No Same Day Admit/Disch: Med Pre-admit Medications Home Medications Medication Instructions Recorded Confirmed Type diltiazem HCl 240 mg 240 mg PO QAM 10/08/19 05/21/22 History capsule,extended release 24 hr lisinopril 40 mg tablet 40 mg PO QAM 10/08/19 05/21/22 History multivitamin 1 tablet PO QAM 12/15/20 05/21/22 History doxazosin 8 mg tablet 4 mg PO HS 12/29/21 05/21/22 History albuterol sulfate 90 mcg/actuation 1 puff inhalation Q4H PRN 04/06/22 05/21/22 Rx aerosol inhaler (Ventolin HFA) shortness of breath or wheezing #8 grams mirtazapine 30 mg tablet 30 mg PO QHS #90 tabs 04/19/22 05/21/22 Rx furosemide 40 mg tablet 40 mg PO QAM 90 days #90 tabs 04/20/22 05/21/22 Rx megestrol 40 mg tablet 40 mg PO QID #60 tabs 05/13/22 05/21/22 Rx potassium chloride 10 mEq 10 meq PO DAILY #4 caps 05/13/22 05/21/22 Rx capsule,extended release hydrocodone 5 mg-acetaminophen 325 1 tablet PO Q6H PRN pain #20 tabs 05/20/22 05/21/22 Rx mg tablet metolazone 10 mg tablet 10 mg PO DAILY #90 tabs 05/20/22 05/21/22 Rx lorazepam 1 mg tablet 1 mg PO Q2HR PRN Anxiety #30 tabs 05/22/22 Rx morphine 20 mg/5 mL (4 mg/mL) oral 20 mg (5 mL) PO Q4H PRN pain #100 05/22/22 Rx solution mL Exam Narrative: Const:?? General: no acute distress and alert ? Nutritional Appe arance: well kendra shed? Orientation/ consciousness: pat ient oriented x3 HENMT:?? Head: normal to in spection? Ears: ex ternal ears normal
--- NOTE | 2022-05-22 08:45 | PC.NURSE ---
Called [facility], Left message for source water protection specialist case management, waiting for call back.
[2022-05-22] MEDS: POTASSIUM CHLORIDE 10 MEQ TABLET PO (09:00)
[2022-05-22] MEDS: FUROSEMIDE 40 MG TABLET PO (09:06)
[2022-05-22] MEDS: metOLazone 2.5 MG TABLET 10 MG PO (09:06)
[2022-05-22] MEDS: lisinopriL 20 MG TABLET 40 MG PO (09:06)
[2022-05-22] MEDS: MEGESTROL ACETATE (*CHEMO) 40 MG TABLET PO ×3 (09:07→22:08)
--- NOTE | 2022-05-22 10:55 | PC.NURSE ---
Called [facility] to follow up about referral, spoke with Shanae, States she will work on referral to [facility] hospice.
[2022-05-22 16:30] VITALS: BP 140/70; PULSE 86; RESP 18; TEMP 36.7; O2SAT 96
[2022-05-22] MEDS: DOXAZOSIN MESYLATE 2 MG TABLET 4 MG PO (22:07)
[2022-05-22] MEDS: MIRTAZAPINE 15 MG TABLET 30 MG PO (22:08)
[2022-05-22 23:15] VITALS: BP 146/59; PULSE 80; RESP 19; TEMP 36.9; O2SAT 98
[2022-05-23 08:00] VITALS: BP 135/55; PULSE 78; RESP 20; TEMP 36.3; O2SAT 96
--- NOTE | 2022-05-23 08:40 | WPDPN ---
Progress Note: A&P Assessment and Plan (1) Hospice care: Code(s): Z51.5 - Encounter for palliative care Status: Acute (2) Acute pericardial effusion: Code(s): I30.9 - Acute pericarditis, unspecified Status: Acute (3) Acute on chronic kidney failure: Qualifiers: Acute renal failure type: unspecified Chronic kidney disease stage: unspecified stage Qualified Code(s): N17.9 - Acute kidney failure, unspecified; N18.9 - Chronic kidney disease, unspecified Code(s): N17.9 - Acute kidney failure, unspecified; N18.9 - Chronic kidney disease, unspecified Status: Acute (4) AAA (abdominal aortic aneurysm): Code(s): I71.4 - Abdominal aortic aneurysm, without rupture Status: Acute (5) BPH (benign prostatic hyperplasia): Code(s): N40.0 - Benign prostatic hyperplasia without lower urinary tract symptoms Status: Acute (6) HTN (hypertension): Code(s): I10 - Essential (primary) hypertension Status: Acute (7) Anemia: Code(s): D64.9 - Anemia, unspecified Status: Acute Subjective Date/time seen: 05/23/22 08:40 Interval history: Patient continues to have shortness of breath on exertion. He also has 3+ pitting edema to bilateral lower extremities. We will give patient an additional dose of Lasix 80 mg. Informed his daughter once he discharges on hospice it is okay for her to give additional dose of Lasix into the swelling has decreased. Awaiting consult from hospice. Patient appears to be comfortable at this time Exam Narrative: Const:?? General: no acute distress and alert ? Nutritional Appe arance: well kendra shed? Orientation/ consciousness: pat ient oriented x3 HENMT:?? Head: normal to in spection? Ears: ex ternal ears normal ? General nose exa m: Normal external nose present? Fac e and sinus: zaina l facial exam Eyes:?? Conjunctivae: conj unctivae normal? P upils: Equal, roun d and reactive pup ils present? EOM: EOMs intact bilate rally Neck:?? Neck: normal visua l inspection Resp:?? Effort & Inspectio n: labored and not tachypneic? Other : bibasilar crackl es Cardio:?? Rate: regular rate ? Rhythm: regular rhythm? Other: muf fled heart sounds GI:?? Inspection: non-di stended? GI Palp: Yes Soft to palpat ion and No Tendern ess to palpation p resent (GI) Neuro:?? General: patient o riented x3 and mov es all extremities Extrem:?? General: normal to inspection Psych:?? Mental Status: men tony status grossly normal Objective Data Vital Signs Vital Signs: Vital Signs - 24 hr 05/22/22 16:30 05/22/22 23:15 Temperature 98.1 F 98.5 F Pulse Rate 86 80 Respiratory Rate 18 19 Blood Pressure 140/70 146/59 H Pulse Oximetry 96 98 Oxygen Delivery Room Air Room Air Intake/Output Intake/Output: Intake & Output 05/20/22 05/21/22 05/22/22 05/23/22 23:59 23:59 23:59 23:59 Intake Total 1240 198 Balance 1240 198 Meds/Results Medications: Active Medications Generic Name Dose Route Start Last Admin Trade Name Uvaldoq PRN Reason Stop Dose Admin Acetaminophen 650 mg 05/21/22 18:31
[2022-05-23] MEDS: FUROSEMIDE INJ 100 MG/10 ML VIAL 80 MG IV PUSH (08:59)
[2022-05-23] MEDS: MEGESTROL ACETATE (*CHEMO) 40 MG TABLET PO ×4 (09:00→20:11)
[2022-05-23] MEDS: metOLazone 2.5 MG TABLET 10 MG PO (09:01)
[2022-05-23] MEDS: lisinopriL 20 MG TABLET 40 MG PO (09:01)
[2022-05-23] MEDS: FUROSEMIDE 40 MG TABLET PO (09:02)
[2022-05-23] MEDS: POTASSIUM CHLORIDE 10 MEQ TABLET PO (09:02)
[2022-05-23 16:00] VITALS: BP 137/61; PULSE 77; RESP 18; TEMP 36.5; O2SAT 97
[2022-05-23] MEDS: MIRTAZAPINE 15 MG TABLET 30 MG PO (20:11)
[2022-05-23] MEDS: DOXAZOSIN MESYLATE 2 MG TABLET 4 MG PO (20:12)
[2022-05-23 23:29] VITALS: BP 158/57; PULSE 97; RESP 19; TEMP 36.9; O2SAT 96
--- NOTE | 2022-05-24 07:45 | PM.DS ---
DS: Admitting Diagnosis Discharge Date 05/24/2022 Admitting Diagnosis Acute pericarditis and dyspnea DS: Discharge Diagnosis Discharge Diagnosis (1) Hospice care: Code(s): Z51.5 - Encounter for palliative care Status: Acute (2) Acute pericardial effusion: Code(s): I30.9 - Acute pericarditis, unspecified Status: Acute (3) Acute on chronic kidney failure: Qualifiers: Acute renal failure type: unspecified Chronic kidney disease stage: unspecified stage Qualified Code(s): N17.9 - Acute kidney failure, unspecified; N18.9 - Chronic kidney disease, unspecified Code(s): N17.9 - Acute kidney failure, unspecified; N18.9 - Chronic kidney disease, unspecified Status: Acute (4) AAA (abdominal aortic aneurysm): Code(s): I71.4 - Abdominal aortic aneurysm, without rupture Status: Acute (5) BPH (benign prostatic hyperplasia): Code(s): N40.0 - Benign prostatic hyperplasia without lower urinary tract symptoms Status: Acute (6) HTN (hypertension): Code(s): I10 - Essential (primary) hypertension Status: Acute (7) Anemia: Code(s): D64.9 - Anemia, unspecified Status: Acute DS: Summary Hospital Course Reason for hospitalization: Acute pericarditis, transition to hospice care Hospital Course: Forrest Kong is a 76 year old male that presented to the emergency department with complaints of shortness of breath.? Patient has a past medical history of AAA, anemia, arthritis, BPH,Cholangiocarcinoma, and hip pain..? Patient imaging indicated mild pleural effusion.? Patient opted for hospice care at this time did not want transfer or aggressive care we will arrange for hospice today.? Patient will transition to hospice care today Time Spent with Patient Time attestation: Total time spent providing and/or coordinating discharge services: Exam Narrative: Const:?? General: no acute distress and alert ? Nutritional Appe arance: well kendra shed? Orientation/ consciousness: pat ient oriented x3 HENMT:?? Head: normal to in spection? Ears: ex ternal ears normal ? General nose exa m: Normal external nose present? Fac e and sinus: zaina l facial exam Eyes:?? Conjunctivae: conj unctivae normal? P upils: Equal, roun d and reactive pup ils present? EOM: EOMs intact bilate rally Neck:?? Neck: normal visua l inspection Resp:?? Effort & Inspectio n: unlabored? Othe r: bibasilar crack les Cardio:?? Rate: regular rate ? Rhythm: regular rhythm? Other: muf fled heart sounds 3+ pitting edema t o Ramses LE GI:?? Inspection: non-di stended? GI Palp: Yes Soft to palpat ion and No Tendern ess to palpation p resent (GI) Neuro:?? General: patient o riented x3 and mov es all extremities Extrem:?? General: normal to inspection Psych:?? Mental Status: men tony status grossly normal Discharge Plan Discharge Attending physician on discharge: Quentin Campos Discharging Clinician: Dede Stone Anticipated Discharge Date/Time: 05/24/22 08:35 Patient Disposition: Hospice - Medical Facility Activity: as
[2022-05-24 08:00] VITALS: BP 124/61; PULSE 80; RESP 16; TEMP 36.3; O2SAT 95
[2022-05-24] MEDS: MEGESTROL ACETATE (*CHEMO) 40 MG TABLET PO (08:50)
[2022-05-24] MEDS: FUROSEMIDE INJ 40 MG/4 ML VIAL 20 MG IV PUSH (08:50)
[2022-05-24] MEDS: lisinopriL 20 MG TABLET 40 MG PO (08:51)
[2022-05-24] MEDS: POTASSIUM CHLORIDE 10 MEQ TABLET PO (08:51)
[2022-05-24] MEDS: FUROSEMIDE 40 MG TABLET PO (08:51)
[2022-05-24] MEDS: metOLazone 2.5 MG TABLET 10 MG PO (08:51)
--- NOTE | 2022-05-24 11:15 | PC.NURSE ---
Pt discharged home with Home Hospice care. Vital signs are stable, pt denies pain. Right chest port flushed and needle removed. Occlusive dressing placed. Pt and daughter instructed to remove the dressing in 24 hours. Medications reviewed with both pt and daughter. Both verbalized understanding of medication instruction. RN transported the pt to the car via WC and helped him get inside.
--- NOTE | 2022-05-26 13:51 | PC.NURSE ---
Son states they received and understood the discharge instructions. No other comments.
== END 2022-05-24 10:45 | disposition hospice, inpatient (51) ==
LOC: CHSED 18:29 → CHS2ND 18:43
PROVIDERS: Admitting Provider Internal Medicine; Emergency Provider Family Medicine; PCP Family Medicine; Visit Provider Internal Medicine
DX: J90 Pleural effusion, not elsewhere classified (principal); I31.3 Pericardial effusion (noninflammatory); N17.9 Acute kidney failure, unspecified; D64.9 Anemia, unspecified; C22.1 Intrahepatic bile duct carcinoma; I12.9 Hypertensive chronic kidney disease with stage 1 through stage 4 chronic kidney disease, or unspecified chronic kidney disease; N18.9 Chronic kidney disease, unspecified; N40.0 Benign prostatic hyperplasia without lower urinary tract symptoms; M16.10 Unilateral primary osteoarthritis, unspecified hip; F32.9 Major depressive disorder, single episode, unspecified; Z85.51 Personal history of malignant neoplasm of bladder; Z87.891 Personal history of nicotine dependence; Z51.5 Encounter for palliative care
CPT/HCPCS: 36415; 80053; 83880; 84484; 85025; 93005; 96374; 96375; 96376; 99285; A9270; G0378; J1940; J2060

== ENCOUNTER 2022-06-13 15:14 | Observation (INO) | payer MEDICARE, SELFPAY ==
[2022-06-13] VITALS (13 sets, daily range): BP systolic 82–114; BP diastolic 45–81; PULSE 75–101; RESP 20–26; TEMP 36.1–37.1; O2SAT 82–98; BMI 35.2
--- NOTE | ~2022-06-13 | CT_ITS ---
EXAMINATION: CT chest abdomen pelvis wo con DATE: 06/13/2022 19:08 INDICATION: metastatic cholangiocarcinoma.sepsis.anorexia. . TECHNIQUE: Computed tomography (CT) of the chest, abdomen, and pelvis was performed with 100 mL Omnip aque-350 intravenous contrast. Automated exposure control and iterative reconstruction technique were employed. The dose-length product was 1784.18 mGy-cm. COMPARISON: None FINDINGS: Thoracic aorta: No significant dilation or calcification. Lung parenchyma and airways: Scattered nodular opacities have decreased slightly in size. Similar are as of lower lobe tree-in-bud opacities. This may represent resolving infection or treatment response. Thoracic inlet, axillae and chest wall: Extensive subcutaneous edema with enlargement deep subcutaneo us area of induration and/or fluid, with possible chest wall muscle thickening. These features are di fficult to differentiate without contrast. The access needle does not engage the hub. Mediastinum: Multiple enlarged mediastinal lymph nodes. Heart and pericardium: Normal heart size. Small volume pericardial effusion. Coronary artery calcifications: Moderate. Pleura: Bilateral small-moderate pleural effusions, slightly increased since the prior study. Thoracic bones: No acute osseous finding in the chest. ABDOMEN/PELVIS: Liver: Enlarged, with a large central low density mass. Perihepatic fluid. Biliary/Gallbladder: Mild gallbladder wall thickening, nonspecific in the setting of chronic liver di sease. No bile duct dilation. Pancreas: No mass or duct dilation. Spleen: Normal. Adrenals:No mass. Kidneys: Bilateral renal atrophy. GI tract: No small or large bowel dilation. Appendix not visualized Mesentery/Peritoneum: Volume abdominopelvic fluid. Retroperitoneum: Aortobifemoral graft, patency not assessed Pelvis: Bladder wall thickening likely due to outlet compromise from marked prostatomegaly. Soft Tissues: Mild diffuse body wall edema Abdominopelvic bones: No acute osseous finding in the abdomen/pelvis. IMPRESSION: Right IJ implanted port access needle does not engage the hub. Extensive surrounding subcutaneous nickolas ma/fluid in the right upper chest may reflect infiltrated medication or cellulitis. Deep tissue phleg mon/abscess not excluded. Reviewed, dictated and finalized at location K. IMPRESSION: Right IJ implanted port access needle does not engage the hub. Extensive surrou nding subcutaneous edema/fluid in the right upper chest may reflect infiltrated medication or cellulitis. Deep tissue phlegmon/abscess not excluded.
--- NOTE | ~2022-06-13 | XR_ITS ---
EXAMINATION: XR chest 1V portable Exam Date/Time: 06/13/2022 18:07 CDT HISTORY: metastatic cholangiocarcinoma, elevated WBC/WEAKNESS Comparison: 05/11/2022. RESULT: Lines, tubes, and devices: Right chest port terminating in the SVC. Lungs and pleura: Hazy airspace opacities in the left lower lung and right peripheral mid and lower lung. Bilateral angle blunting. Cardiomediastinal silhouette: Stable. Other: No acute osseous or upper abdominal finding. IMPRESSION: Bilateral opacities may reflect edema or infection. Small bilateral effusions. Reviewed, dictated and finalized at location K.
--- NOTE | 2022-06-13 16:12 | PC.NURSE ---
patient demanding to get into wheelchair due to be uncomfortable on stretcher, patient has been adjusted in bed and readjusted but refuses to stay on stretcher, family is determined that patient must be put into wheelchair.
--- NOTE | 2022-06-13 16:15 | PC.NURSE ---
patient assisted into wheelchair by RN and Son a bedside.
[2022-06-13] MEDS: SODIUM CHLORIDE 0.9% IV 1,000 ML 999 ML IV CONT ×2 (17:05→18:27)
[2022-06-13 17:09] LABS: Basophils Percent Auto 0.5 % (0.0-1.0); Hematocrit 29.2 % (37.0-46.0); Hemoglobin 9.2 g/dL (12.4-15.3); Immature Granulocyte Absolute 0.22 K/mm3 (0.00-0.00); Immature Granulocyte Percent A 1.2 % (0.0-0.0); Lymphocytes Absolute Auto 0.47 K/mm3 (1.10-4.50); Lymphocytes Percent Auto 2.5 % (18.0-42.0); Mean Corpuscular HGB Conc 31.5 g/dL (32.0-36.0); Mean Corpuscular Hemoglobin 30.9 pg (27.0-31.0); Mean Platelet Volume 9.8 fl (8.7-11.0); Monocytes Absolute Auto 1.31 K/mm3 (0.10-0.90); Monocytes Percent Auto 6.8 % (2.0-11.0); Platelet Count Result 201 K/mm3 (150-420); Red Blood Count 2.98 M/mm3 (4.70-6.10); Red Cell Distribution Width 21.7 % (11.6-14.4); White Blood Count 19.1 K/mm3 (4.8-10.8)
--- NOTE | 2022-06-13 17:10 | ED.GENADULT ---
HPI - General Adult General Chief complaint: Weakness Stated complaint: weakness/no strength History of Present Illness HPI narrative: The patient is a 76-year-old male with a history of cholangiocarcinoma stage IV, with metastases to the liver, lymph nodes, chest, and esophagus. He was admitted here 05/21/2022 with weakness. The workup revealed a moderate pericardial effusion, with metastatic disease in the chest. He was placed on hospice at that time. Comorbidities include abdominal aortic aneurysm, hypertension, chronic kidney disease with his last creatinine being 1.7 BUN of 33, abdominal aortic aneurysm status post repair, obesity, pedal edema on metolazone and lasix, and BPH. He does have an indwelling Port-A-Cath that had been used for chemotherapy for his cholangiocarcinoma but this has been been discontinued by his oncologist given the metastatic load. He called his son today and asked to be brought to the hospital since he is not feeling well and has had little intake of food or liquids in the last several days. He only had cereal and juice this morning. He presents for further evaluation. He does not want any heroic measures done. He denies any pain such as chest pain or abdominal pain or back pain. He denies any nausea or vomiting. He does have chronic pedal edema which has been managed with diuretics He does take his medications, but intermittently as he has no appetite. He is already on megace.. Related Data Home Medications Medication Instructions Recorded Confirmed diltiazem HCl 240 mg 240 mg PO QAM 10/08/19 06/13/22 capsule,extended release 24 hr lisinopril 40 mg tablet 40 mg PO QAM 10/08/19 06/13/22 multivitamin 1 tablet PO QAM 12/15/20 06/13/22 doxazosin 8 mg tablet 4 mg PO 12/29/21 06/13/22 Allergies Allergy/AdvReac Type Severity Reaction Status Date / Time No Known Allergies Allergy Verified 06/13/22 15:32 Review of Systems Review of Systems: All systems reviewed & are unremarkable except as noted in HPI and below Constitutional: Constitutional: Reports no additional constitutional complaints, Reports anorexia, Denies body ache(s), Denies chills, Denies excessive sweating, Reports fatigue, Denies fever(s), Denies frequent falls, Denies headache(s), Reports malaise and Reports poor appetite Eyes: Eyes: Reports no additional eye complaints, Denies blurry vision, Denies change in vision, Denies irritation, Denies itchy eyes and Denies photophobia ENT: Reports system reviewed and no additional complaints, except as documented, Reports Normal hearing present, Denies change in voice, Denies dysphagia, Denies vertigo, Denies ear discharge, Denies headache(s), Denies hearing loss, Denies hoarseness, Denies nasal congestion, Denies neck pain, Denies sinus pressure, Denies sore throat and Denies throat swelling Cardiovascular: Cardiovascular: Reports no additional cardiovascular complaints, Denies chest pain, Denies syncope, Denies rapid heart rate, Denies irregular heart rhythm, Reports leg edema, Denies dyspnea and Denies slow heart rate Respiratory: Respiratory: Reports no additional respiratory complaints, Denies cough, Denies dyspnea, Denies stridor and Denies wheezing Gastrointestinal: Gastrointestinal: Reports no additional gastrointestinal complaints, Denies abdominal pain, Denies melena, Denies hematochezia, Denies dysphagia, Denies diarrhea, Denies nausea and Denies vomiting Genitourinary: Genitourinary: Denies hematuria, Denies oliguria, Denies dysuria, Denies flank pain, Denies urinary frequency and Denies urinary urgency Musculoskeletal: Musculoskeletal: Reports no additional musculoskeletal complaints (overall generalized weakness), Denies abnormal gait, Denies back pain, Denies myalgias, Denies arthralgias, Denies joint swelling, Denies limited range of motion, Denies muscle cramps, Denies muscle weakness, Denies neck pain and Denies numbness Integumentary/Breasts: Skin/Breast: Reports system rev
[2022-06-13 17:17] LABS: SARS-CoV-2 RNA PCR Negative (Negative)
[2022-06-13 17:20] LABS: INR 1.4; Partial Thromboplastin Time 31.3 SEC (23.90-30.70); Prothrombin Time 14.9 Seconds (9.50-12.10)
[2022-06-13 17:28] LABS: Lactic Acid Reflex 3.1 mmol/L (0.4-2.0)
[2022-06-13 17:29] LABS: Alanine Aminotransferase 16 U/L (16-63); Albumin Level 1.9 g/dL (3.4-5.0); Alkaline Phosphatase 144 U/L (46-116); Anion Gap 8 mmol/L (8-16); Aspartate Amino Transferase 23 U/L (15-37); Bilirubin,Total 0.8 mg/dL (0.00-1.00); Blood Urea Nitrogen 38 mg/dL (7-18); Calcium 7.9 mg/dL (8.5-10.1); Carbon Dioxide 31 mmol/L (21-32); Chloride 105 mmol/L (98-108); Estimated Glomerular Filt Rate 32; Glucose 135 mg/dL (70-99); NT Pro B Type Natriuretic Pept 3861 pg/mL (0-450); Osmolality Calculated 309 mOsm/kg (285-295); Potassium 3.7 mmol/L (3.5-5.1); Sodium 144 mmol/L (136-145); Total Protein 5.5 g/dL (6.4-8.2)
[2022-06-13 17:31] LABS: Troponin I 27.9 ng/L (0.00-60.4)
[2022-06-13 17:36] LABS: Magnesium 1.8 mg/dL (1.8-2.4)
[2022-06-13 17:37] LABS: CRP 19.5 mg/dL (0.0-0.9)
[2022-06-13 18:10] LABS: Erythrocyte Sedimentation Rate 51 mm/hr (0-20)
[2022-06-13] MEDS: MIDODRINE HCL 2.5 MG TABLET 10 MG PO (18:36)
[2022-06-13 20:17] LABS: Reflex Lactic Acid Yes or No Add Lactic
--- NOTE | 2022-06-13 20:45 | ADMGEN ---
This patient, Forrest Kong, was admitted to 2nd Floor Room 210-2. Patient/family oriented to hospital policies and general routines including ID bracelet, bed and alarms, visiting hours, pain management, procedures, bathroom and other care routines, personal items, smoking policy, room service/diet, and visiting hours. Information on how to activate the Rapid Response Team has been discussed. Patient/Family are encouraged to report perceived risks to care and to ask questions if they do not understand what they are told or what they should do.
[2022-06-13 20:58] LABS: Lactic Acid 3.1 mmol/L (0.4-2.0)
--- NOTE | 2022-06-13 21:49 | PC.NURSE ---
Patient arrived from ER at 2044. When orders were acknowledged, it was noted that he was to have received calcium gluconate, 2,000 mg in 100 mL normal saline at 1829. ER was contacted; they did not give him that medication when he was there. Therefore, the medication was retrieved from the pharmacy, mixed, and given to the patient as soon as possible.
[2022-06-13] MEDS: CALCIUM GLUC 2,000 MG/NS 100ML 2,000 MG/100 ML BAG 100 MG IVPB (22:01)
--- NOTE | 2022-06-13 22:45 | PC.NURSE ---
Call received from Alysia with [facility] to check on status of pt, [facility] # [phone] if pt has status change. Hospice team to call in AM for follow up.
[2022-06-14] VITALS (7 sets, daily range): BP systolic 125–202; BP diastolic 49–146; PULSE 72–120; RESP 22–26; TEMP 35.3–36.4; O2SAT 90–97
--- NOTE | 2022-06-14 00:30 | PC.NURSE ---
JERRY collected and taken to [facility] in lab.
[2022-06-14 00:39] LABS: Add Urine Microscopic? YES; Bilirubin Urine Negative (Negative); Blood Urine Negative (Negative); Color Urine Yellow (Yellow); Glucose Urine UA Negative (Negative); Ketones Urine Negative (Negative); Leukocyte Esterase Ur 1+ LEU/UL (Negative); Nitrate Urine Negative (Negative); Protein Urine Negative (Negative); pH Urine 5.5 (5.0-8.0)
[2022-06-14 00:54] LABS: Appearance Urine Turbid (Clear); RBC Urine 0-2 /hpf (0-2)
[2022-06-14 00:55] LABS: Bacteria Urine 4+ /hpf; Granular Casts Urine 15-19 /lpf; Squamous Epithelial Cell Urine Many /hpf (Few)
--- NOTE | 2022-06-14 11:01 | PM.SD2 ---
Same Day Admit/Disch: HPI History of Present Illness Chief complaint: METASTATIC CHOLANGIOCARCINOMA DNR HYPOTENSION PNEU Narrative: Forrest Kong is a 76 year old male that presented to the emergency department due to weakness. Patient has a past medical history of AAA, anemia, arthritis, BPH, hypertension, bladder cancer, and pericarditis. Patient was discharged from our facility on 05/24/2022 on hospice. According to patient for the last couple he has been feeling weak. Vital signs 95.5, 75, 22, 91% on room air, 129/49, WBCs 19.1, hemoglobin 9.2, hematocrit 29.2, platelets 102, sodium 144, potassium 3.7, glucose 135, creatinine 2.04, BUN 38, lactic acid 3.1, calcium 7.9, troponin 27.9, CRP 19.5, UA positive for leukocyte Estrace WBCs, bacteria, chest x-ray bilateral edema or infection. Patient will discharge home back on hospice he will be treated for urinary tract infection. He still continues to have generalized weakness PMFSH Past Medical History Medical History AAA (abdominal aortic aneurysm) Anemia Arthritis BPH (benign prostatic hyperplasia) Cholangiocarcinoma (~02/2022) Gait disturbance Hip osteoarthritis History of GI bleed HTN (hypertension) Hx of benign neoplasm of bladder Obesity, Class II, BMI 35-39.9 Pain in unspecified hip Surgical History Surgical History History of appendectomy 11-25-2009 History of bilateral cataract extraction History of bowel resection History of removal of cyst approx. 2013 History of surgery history of tumor removed from bladder; took quarterly treatments (cysto and BCG) Dr. Rivera; all clear as of 07/01/15, last BCG treatment 04-10-13 S/P AAA repair using straight graft 2011 Family History Family History Father Family history of malignant neoplasm Mother Family history of malignant neoplasm Family history of type 2 diabetes mellitus Social History Social History Smoking packs per day: 2 Smoking cigarettes per day: 40.0 Years smoked: 50 Smoking pack-years: 100.00 Smoking status: Former smoker Tobacco type: cigarettes Second hand tobacco smoke exposure: No Smoking end date: 11/07/09 Additional smoking assessment comments: pt quit 15 years ago Alcohol intake: former Alcohol use details: 2-4 DRINKS/MONTH Substance use: never Substance use type: does not use Gender identity (if verbalized by the patient): Male Spiritual care concerns: No Same Day Admit/Disch: Med Pre-admit Medications Home Medications Medication Instructions Recorded Confirmed Type diltiazem HCl 240 mg 240 mg PO QAM 10/08/19 06/13/22 History capsule,extended release 24 hr lisinopril 40 mg tablet 40 mg PO QAM 10/08/19 06/13/22 History multivitamin 1 tablet PO QAM 12/15/20 06/13/22 History doxazosin 8 mg tablet 4 mg PO HS 12/29/21 06/13/22 History albuterol sulfate 90 mcg/actuation 1 puff inhalation Q4H PRN 04/06/22 06/13/22 Rx aerosol inhaler (Ventolin HFA) shortness of breath or wheezing #8 grams mirtazapine 30 mg tablet 30 mg PO QHS #90 tabs 04/19/22 06/13/22 Rx megestrol 40 mg tablet 40 mg PO QID #60 tabs 05/13/22 06/13/22 Rx potassium chloride 10 mEq 10 meq PO DAILY #4 caps 05/13/22 06/13/22 Rx capsule,extended release hydrocodone 5 mg-acetaminophen 325 1 tablet PO Q6H PRN pain #20 tabs 05/20/22 06/13/22 Rx mg tablet metolazone 10 mg tablet 10 mg PO DAILY #90 tabs 05/20/22 06/13/22 Rx lorazepam 1 mg tablet 1 mg PO Q2HR PRN Anxiety #30 tabs 05/22/22 06/13/22 Rx morphine 20 mg/5 mL (4 mg/mL) oral 20 mg (5 mL) PO Q4H PRN pain #100 05/22/22 06/13/22 Rx solution mL furosemide 40 mg tablet 40 mg PO DAILY 90 days #90 tabs 05/24/22 06/13/22 Rx Exam Narrative: GENERAL: Elderly gentleman with ill appearance HEAD: normocephalic, atraumatic
[2022-06-14] MEDS: MEGESTROL ACETATE (*CHEMO) 40 MG TABLET PO ×3 (13:00→21:03)
[2022-06-14] MEDS: LORazepam (*CRX) 1 MG TABLET PO ×2 (14:24→21:03)
[2022-06-14] MEDS: MORPHINE SULFATE (*CRX) 2 MG/ML INJ IV PUSH (21:07)
[2022-06-15] VITALS: BP 102/55; PULSE 72; RESP 22; TEMP 36.3; O2SAT 97
[2022-06-15 05:47] VITALS: O2SAT 96
[2022-06-15 07:50] VITALS: BP 125/61; PULSE 83; RESP 14; TEMP 36.2; O2SAT 97
[2022-06-15 08:00] VITALS: O2SAT 97
[2022-06-15 09:53] LABS: Hematocrit 26.2 % (37.0-46.0); Hemoglobin 8.1 g/dL (12.4-15.3); Mean Corpuscular HGB Conc 30.9 g/dL (32.0-36.0); Mean Corpuscular Hemoglobin 30.8 pg (27.0-31.0); Mean Corpuscular Volume 99.6 fL (78.0-102.0); Mean Platelet Volume 10.8 fl (8.7-11.0); Platelet Count Result 175 K/mm3 (150-420); Red Blood Count 2.63 M/mm3 (4.70-6.10); Red Cell Distribution Width 21.9 % (11.6-14.4); White Blood Count 16.5 K/mm3 (4.8-10.8)
[2022-06-15 10:09] LABS: Albumin Level 1.6 g/dL (3.4-5.0); Alkaline Phosphatase 130 U/L (46-116); Anion Gap 9 mmol/L (8-16); Aspartate Amino Transferase 21 U/L (15-37); Bilirubin,Total 0.7 mg/dL (0.00-1.00); Blood Urea Nitrogen 48 mg/dL (7-18); Calcium 7.5 mg/dL (8.5-10.1); Carbon Dioxide 30 mmol/L (21-32); Chloride 106 mmol/L (98-108); Estimated CRCL calculation 29 ml/min; Estimated Glomerular Filt Rate 26; Glucose 115 mg/dL (70-99); Osmolality Calculated 313 mOsm/kg (285-295); Sodium 145 mmol/L (136-145); Total Protein 4.6 g/dL (6.4-8.2)
[2022-06-15 10:17] LABS: Alanine Aminotransferase 15 U/L (16-63)
[2022-06-15 10:20] LABS: SARS-CoV-2 Ag Negative (Negative)
--- NOTE | 2022-06-15 10:53 | WPDPN ---
Progress Note: A&P Assessment and Plan (1) Hospice care patient: Code(s): Z51.5 - Encounter for palliative care Status: Acute Assessment and Plan: Patient is a hospice patient he would discharge back to hospice He would discharge with p.o. 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: Code(s): C22.1 - Intrahepatic bile duct carcinoma; C77.9 - Secondary and unspecified malignant neoplasm of lymph node, unspecified Status: Acute (3) Acute on chronic kidney failure: Qualifiers: Acute renal failure type: unspecified Chronic kidney disease stage: unspecified stage Qualified Code(s): N17.9 - Acute kidney failure, unspecified; N18.9 - Chronic kidney disease, unspecified Code(s): N17.9 - Acute kidney failure, unspecified; N18.9 - Chronic kidney disease, unspecified Status: Acute (4) Acute pericardial effusion: Code(s): I30.9 - Acute pericarditis, unspecified Status: Acute (5) Edema: Code(s): R60.9 - Edema, unspecified Status: Acute (6) HTN (hypertension): Code(s): I10 - Essential (primary) hypertension Status: Acute (7) BPH (benign prostatic hyperplasia): Code(s): N40.0 - Benign prostatic hyperplasia without lower urinary tract symptoms Status: Acute (8) Anemia: Code(s): D64.9 - Anemia, unspecified Status: Acute (9) UTI (urinary tract infection): Code(s): N39.0 - Urinary tract infection, site not specified Status: Acute Subjective Date/time seen: 06/16/22 10:53 Interval history: Patient condition is definitely deteriorating he is currently hallucinating. He is not responding or following commands which is different from yesterday. Family is at bedside. We will continue comfort measures. Patient family members are arranging placement as a hospice patient. Review of Systems Review of Systems: All systems reviewed & are unremarkable except as noted in HPI and below ROS unobtainable: Yes unobtainable due to medical condition Exam Narrative: GENERAL: Elderly gentleman with ill appearance HEAD: normocephalic, atraumatic. EYES: PERRL. Sclera clear/white. Vision is grossly intact. EARS: External ears normal, auditory canals clear and without drainage, TMs normal without perforation. Hearing grossly intact. NOSE: External nose normal with no obvious nasal discharge, nares without redness, no rhinorrhea. THROAT: Mucous membranes moist, posterior pharynx clear. NECK: Neck supple, non-tender without lymphadenopathy, masses or thyromegaly. CARDIOVASCULAR: Regular rate and rhythm without murmurs, gallops, or rubs. RESPIRATORY: Clear to auscultation. Breath sounds equal bilaterally. No wheezes, rales, or rhonchi. GASTROINTESTINAL: Abdomen soft, non-tender, nondistended. Bowel sounds are active. No hepato-splenomegaly, or palpable masses. No guarding. SKIN: warm, intact with no suspicious lesions or rash, good texture and turgor. NEURO: awake, alert, and oriented to person, place and time. There were no obvious focal neurologic abnormalities. EXTREMITIES: Pitting edema bilaterally Objective Data Vital Signs Vital Signs: Vital Signs - 24 hr 06/15/22 23:29 06/16/22 08:00 Temperature 97.6 F 96.6 F L Pulse Rate 83 80 Respiratory Rate 25 H 20 Blood Pressure 101/81 113/58 L Pulse Oximetry 96 98 Oxygen Delivery Nasal Cannula Nasal Cannula Oxygen Flow Rate 2.5 2.5 Intake/Output Intake/Output: Intake & Output 06/13/22 06/14/22 06/15/22 06/16/22 23:59 23:59 23:59 23:59 Intake Total 2150 2090 495 180 Output Total 450 100 Balance 2150 1640 395 180 Meds/Results Medications: Active Medications Generic Name Dose Route Start Last Admin Trade Name Freq PRN Reason Stop Dose Admin Hydrocodone Bitart/Acetaminophen 1 tab 06/15/22 13:16 Hydrocodone/Acetaminophen (*Crx) 5-325 Mg Tablet PO Q6H PRN Pain Rated 4-6 Alb
[2022-06-15] MEDS: POTASSIUM CHLORIDE 10 MEQ TABLET PO (11:00)
[2022-06-15] MEDS: FUROSEMIDE 40 MG TABLET PO (11:00)
[2022-06-15] MEDS: MULTIVITAMINS THERAPEUTIC TAB (*BKC) 1 TABLET PO (11:01)
[2022-06-15] MEDS: MEGESTROL ACETATE (*CHEMO) 40 MG TABLET PO ×4 (11:01→20:47)
[2022-06-15] MEDS: lisinopriL 20 MG TABLET 40 MG PO (11:01)
--- NOTE | 2022-06-15 11:07 | PC.NURSE ---
Pt am meds given at 11am because pt wanted to wait to take them. Family is waiting for hospice placement.
[2022-06-15] MEDS: LORazepam (*CRX) 1 MG TABLET PO (13:01)
[2022-06-15] MEDS: AMOXICILLIN/CLAVULANATE K 500-125 MG TAB 1 TABLET PO (20:47)
[2022-06-15 23:29] VITALS: BP 101/81; PULSE 83; RESP 25; TEMP 36.4; O2SAT 96
[2022-06-16 05:41] VITALS: O2SAT 96
[2022-06-16 08:00] VITALS: BP 113/58; PULSE 80; RESP 20; TEMP 35.9; O2SAT 98
[2022-06-16] MEDS: POTASSIUM CHLORIDE 10 MEQ TABLET PO (09:03)
[2022-06-16] MEDS: AMOXICILLIN/CLAVULANATE K 500-125 MG TAB 1 TABLET PO ×2 (09:03→21:01)
[2022-06-16] MEDS: FUROSEMIDE 40 MG TABLET PO (09:03)
[2022-06-16] MEDS: MEGESTROL ACETATE (*CHEMO) 40 MG TABLET PO ×3 (09:03→20:59)
[2022-06-16] MEDS: MULTIVITAMINS THERAPEUTIC TAB (*BKC) 1 TABLET PO (09:03)
[2022-06-16] MEDS: lisinopriL 20 MG TABLET 40 MG PO (09:03)
--- NOTE | 2022-06-16 10:44 | WPDPN ---
Progress Note: A&P Assessment and Plan (1) Hospice care patient: Code(s): Z51.5 - Encounter for palliative care Status: Acute Assessment and Plan: Patient is a hospice patient he would discharge back to hospice He would discharge with p.o. 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: Code(s): C22.1 - Intrahepatic bile duct carcinoma; C77.9 - Secondary and unspecified malignant neoplasm of lymph node, unspecified Status: Acute (3) Acute on chronic kidney failure: Qualifiers: Acute renal failure type: unspecified Chronic kidney disease stage: unspecified stage Qualified Code(s): N17.9 - Acute kidney failure, unspecified; N18.9 - Chronic kidney disease, unspecified Code(s): N17.9 - Acute kidney failure, unspecified; N18.9 - Chronic kidney disease, unspecified Status: Acute (4) Acute pericardial effusion: Code(s): I30.9 - Acute pericarditis, unspecified Status: Acute (5) Edema: Code(s): R60.9 - Edema, unspecified Status: Acute (6) HTN (hypertension): Code(s): I10 - Essential (primary) hypertension Status: Acute (7) BPH (benign prostatic hyperplasia): Code(s): N40.0 - Benign prostatic hyperplasia without lower urinary tract symptoms Status: Acute (8) Anemia: Code(s): D64.9 - Anemia, unspecified Status: Acute (9) UTI (urinary tract infection): Code(s): N39.0 - Urinary tract infection, site not specified Status: Acute Subjective Date/time seen: 06/16/22 10:44 Interval history: Patient condition is definitely deteriorating he is currently hallucinating. He is not responding or following commands which is different from yesterday. Family is at bedside. We will continue comfort measures. Patient family members are arranging placement as a hospice patient. Review of Systems Review of Systems: ROS unobtainable: Yes unobtainable due to medical condition Exam Narrative: GENERAL: Elderly gentleman with ill appearance HEAD: normocephalic, atraumatic. EYES: PERRL. Sclera clear/white. Vision is grossly intact. EARS: External ears normal, auditory canals clear and without drainage, TMs normal without perforation. Hearing grossly intact. NOSE: External nose normal with no obvious nasal discharge, nares without redness, no rhinorrhea. THROAT: Mucous membranes moist, posterior pharynx clear. NECK: Neck supple, non-tender without lymphadenopathy, masses or thyromegaly. CARDIOVASCULAR: Regular rate and rhythm without murmurs, gallops, or rubs. RESPIRATORY: Clear to auscultation. Breath sounds equal bilaterally. No wheezes, rales, or rhonchi. GASTROINTESTINAL: Abdomen soft, non-tender, nondistended. Bowel sounds are active. No hepato-splenomegaly, or palpable masses. No guarding. SKIN: warm, intact with no suspicious lesions or rash, good texture and turgor. NEURO: awake, alert, and oriented to person, place and time. There were no obvious focal neurologic abnormalities. EXTREMITIES: Pitting edema bilaterally Objective Data Vital Signs Vital Signs: Vital Signs - 24 hr 06/15/22 23:29 06/16/22 08:00 Temperature 97.6 F 96.6 F L Pulse Rate 83 80 Respiratory Rate 25 H 20 Blood Pressure 101/81 113/58 L Pulse Oximetry 96 98 Oxygen Delivery Nasal Cannula Nasal Cannula Oxygen Flow Rate 2.5 2.5 Intake/Output Intake/Output: Intake & Output 06/13/22 06/14/22 06/15/22 06/16/22 23:59 23:59 23:59 23:59 Intake Total 2150 2090 495 180 Output Total 450 100 Balance 2150 1640 395 180 Meds/Results Medications: Active Medications Generic Name Dose Route Start Last Admin Trade Name Freq PRN Reason Stop Dose Admin Hydrocodone Bitart/Acetaminophen 1 tab 06/15/22 13:16 Hydrocodone/Acetaminophen (*Crx) 5-325 Mg Tablet PO Q6H PRN Pain Rated 4-6 Albuterol 1 puff 06/14/22 12:20 Albuterol Sulfate (*Sp) Inhaler INHALA
[2022-06-16 16:00] VITALS: BP 129/58; PULSE 75; RESP 16; TEMP 36.4; O2SAT 95
[2022-06-16 23:48] VITALS: BP 115/55; PULSE 76; RESP 22; TEMP 36.4; O2SAT 96
[2022-06-17 08:00] VITALS: BP 117/59; PULSE 72; RESP 16; TEMP 36.5; O2SAT 99
[2022-06-17] MEDS: AMOXICILLIN/CLAVULANATE K 500-125 MG TAB 1 TABLET PO (08:32)
[2022-06-17] MEDS: MEGESTROL ACETATE (*CHEMO) 40 MG TABLET PO (08:33)
[2022-06-17] MEDS: FUROSEMIDE 40 MG TABLET PO (08:33)
[2022-06-17] MEDS: lisinopriL 20 MG TABLET 40 MG PO (08:33)
[2022-06-17] MEDS: MULTIVITAMINS THERAPEUTIC TAB (*BKC) 1 TABLET PO (08:33)
[2022-06-17] MEDS: POTASSIUM CHLORIDE 10 MEQ TABLET PO (08:34)
--- NOTE | 2022-06-17 08:34 | PM.DS ---
DS: Admitting Diagnosis Discharge Date 06/17/2022 Admitting Diagnosis UTI DS: Discharge Diagnosis Discharge Diagnosis (1) Hospice care patient: Code(s): Z51.5 - Encounter for palliative care Status: Acute Assessment and Plan: Patient is a hospice patient he would discharge back to hospice He would discharge with p.o. 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: Code(s): C22.1 - Intrahepatic bile duct carcinoma; C77.9 - Secondary and unspecified malignant neoplasm of lymph node, unspecified Status: Acute (3) Acute on chronic kidney failure: Qualifiers: Acute renal failure type: unspecified Chronic kidney disease stage: unspecified stage Qualified Code(s): N17.9 - Acute kidney failure, unspecified; N18.9 - Chronic kidney disease, unspecified Code(s): N17.9 - Acute kidney failure, unspecified; N18.9 - Chronic kidney disease, unspecified Status: Acute (4) Acute pericardial effusion: Code(s): I30.9 - Acute pericarditis, unspecified Status: Acute (5) Edema: Code(s): R60.9 - Edema, unspecified Status: Acute (6) HTN (hypertension): Code(s): I10 - Essential (primary) hypertension Status: Acute (7) BPH (benign prostatic hyperplasia): Code(s): N40.0 - Benign prostatic hyperplasia without lower urinary tract symptoms Status: Acute (8) Anemia: Code(s): D64.9 - Anemia, unspecified Status: Acute (9) UTI (urinary tract infection): Code(s): N39.0 - Urinary tract infection, site not specified Status: Acute Assessment and Plan: Patient will discharge on Augmentin DS: Summary Hospital Course Reason for hospitalization: Generalized weakness Hospital Course: Forrest Kong is a 76 year old male that presented to the emergency department due to weakness.? Patient has a past medical history of AAA, anemia, arthritis, BPH, hypertension, bladder cancer, and pericarditis.? Patient was discharged from our facility on 05/24/2022 on hospice.? According to patient for the last couple he has been feeling weak. Patient will discharge today to a [facility] and once he is placed in a [facility] he will resume his hospice. Patient condition has definitely deteriorated since his admission. Patient has ill appearance. He occasionally has shortness of breath and anxiety. Time Spent with Patient Time attestation: Total time spent providing and/or coordinating discharge services: Exam Narrative: GENERAL: Elderly gentleman with ill appearance HEAD: normocephalic, atraumatic. EYES: PERRL. Sclera clear/white. Vision is grossly intact. EARS: External ears normal, auditory canals clear and without drainage, TMs normal without perforation. Hearing grossly intact. NOSE: External nose normal with no obvious nasal discharge, nares without redness, no rhinorrhea. THROAT: Mucous membranes moist, posterior pharynx clear. NECK: Neck supple, non-tender without lymphadenopathy, masses or thyromegaly. CARDIOVASCULAR: Regular rate and rhythm without murmurs, gallops, or rubs. RESPIRATORY: Clear to auscultation. Breath sounds equal bilaterally. No wheezes, rales, or rhonchi. GASTROINTESTINAL: Abdomen soft, non-tender, nondistended. Bowel sounds are active. No hepato-splenomegaly, or palpable masses. No guarding. SKIN: warm, intact with no suspicious lesions or rash, good texture and turgor. NEURO: awake, alert, and oriented to person, place and time. There were no obvious focal neurologic abnormalities. EXTREMITIES: Pitting edema bilaterally DS: Data Data Completed and Pending Labs on day of discharge: Preliminary micro results at discharge 06/13/22 18:31 Blood Culture - Preliminary Blood 06/13/22 18:31 Blood Culture - Preliminary Blood Discharge Plan Discharge Attending physician on discharge: Quentin Campos Discharging Clinician: Nicholas Stone
--- NOTE | 2022-06-17 09:07 | PC.NURSE ---
report called to [facility]. Paperwork/medications reviewed with family. Patient requested son sign for him
[2022-06-17 10:20] VITALS: O2SAT 96
--- NOTE | 2022-06-17 10:26 | PC.NURSE ---
Patient picked up by [facility] for transport [facility] in [place]. [place] to walk to [facility] with assist of 1. Belongings with daughter. Daughter and son will meet at [facility]. Paperwork went with ambulance
--- NOTE | 2022-06-21 11:13 | PC.NURSE ---
[facility] nurse states they received and understood the discharge instructions.
== END 2022-06-17 10:20 ==
LOC: CHSED 19:05 → CHS2ND 19:50
PROVIDERS: Nurse Practitioner; Admitting Provider Internal Medicine; Emergency Provider Emergency Medicine; PCP Family Medicine; Visit Provider Internal Medicine
DX: N39.0 Urinary tract infection, site not specified (principal); C22.1 Intrahepatic bile duct carcinoma; C77.9 Secondary and unspecified malignant neoplasm of lymph node, unspecified; C78.89 Secondary malignant neoplasm of other digestive organs; D64.9 Anemia, unspecified; I12.9 Hypertensive chronic kidney disease with stage 1 through stage 4 chronic kidney disease, or unspecified chronic kidney disease; N17.9 Acute kidney failure, unspecified; N18.9 Chronic kidney disease, unspecified; N40.0 Benign prostatic hyperplasia without lower urinary tract symptoms; M16.10 Unilateral primary osteoarthritis, unspecified hip; E66.8 Other obesity; Z20.822 Contact with and (suspected) exposure to COVID-19; Z85.51 Personal history of malignant neoplasm of bladder; Z87.891 Personal history of nicotine dependence; Z51.5 Encounter for palliative care; Z68.35 Body mass index [BMI] 35.0-35.9, adult
CPT/HCPCS: 36415; 71045; 71250; 74176; 80053; 81001; 83605; 83735; 83880; 84484; 85025; 85027; 85610; 85652; 85730; 86140; 87040; 87086; 87426; 96361; 96365; 96366; 96367; 96375; 99285; A9270; C9803; G0378; J0610; J2270; J2543; J7030; U0003; U0005